=== PATIENT | female | born 2000 | race Caucasian/White ===

== ENCOUNTER 2019-06-29 15:16 | Inpatient (IN) ==
[2019-06-29] MEDS ORDERED: OXYTOCIN 30 UNITS/500 ML BAG IV PRN (15:18)
[2019-06-29] MEDS ORDERED: PENICILLIN G POTASSIUM 3 MU in DEXTROSE 5% 100 ML IV PRN (15:18)
[2019-06-29] MEDS ORDERED: PENICILLIN G POTASSIUM 6 MU in DEXTROSE 5% 250 ML IV STA (15:26)
[2019-06-29 15:38] LABS: Hematocrit (blood only) 36.4 % (37-47); Hemoglobin 12.4 g/dL (12.0-16.0); Mean Corpuscular Hemoglobin 30.6 pg (25-34); Mean Corpuscular Volume 89.9 fL (80-100); Mean Platelet Volume 10.5 fL (7.4-10.4); Platelet Count 203 K/uL (130-400); RDW Coefficient of Variation 14.2 % (11.5-14.5); Red Blood Count 4.05 M/uL (4.2-5.4); White Blood Count 9.86 K/uL (4.8-10.8)
--- NOTE | 2019-06-29 15:39 | History & Physical Report ---
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 Brown is a 19y/o female ; presenting for cervical dilation with contractions when seen in clinic today at 41 4/7 weeks; GBS+ during this ; attended OB appointments; having contractions every 4-5 minutes; has good movement; no fluid loss; no vaginal blood loss Labs: (06/29/19) Blood type: A+ negative antibody screen H.4 Hct: 36.4 WBC: 9.8 Plt: 203 Rubella: immune VDRL/RPR: negative Gonorrhea: negative Chlamydia: negative HIV screen: negative HbSAg: negative GBS: positive normal Glucose tolerance x2 Allergies Allergy/AdvReac Type Severity Reaction Status Date / Time No Known Drug Allergies Allergy Verified 06/29/19 14:31 Past Med/Surg History Medical History Asthma History of varicella vaccination Personal history of asthma Surgical History History of adenoidectomy S/P tonsillectomy S/P wisdom tooth extraction Family History Grandmother (Maternal) Endometriosis great grandmother Dyslipidemia Mother Multiple gestation Other No significant family history Social History Preferred Language: Northern Irish Communication Ability: Effective High Pressure Firer Required: No Beliefs That Will Affect Care: None marital status: Willard Brown Current Living Situation: Spouse Current Living Situation Comment: in town home current occupational status: student Feels Safe at Home: Yes Safety Concerns: Feels Safe At This Time Smoking Status: Never smoker Do You Dip or Chew Tobacco: No ; Second Hand Exposure: No ; Hx Alcohol Use: No Hx Substance Use: No Review of Systems Review of Systems: Constitutional: denies fever; chills; sweats; headache Respiratory: denies shortness of breath, difficulty breathing Cardiac: denies chest pain; palpitations; chest pressure Breast: denies breast pain : denies dysuria Physical Exam Physical Exam: General: alert; oriented; no acute distress Cardiac: RRR; no m/g/r Respiratory: CTAB a/p; no wheezes/rales/rhonchi; no increased work of breathing; symmetrical chest rise; no respiratory distress Lower extrem: no lower extremity edema or swelling; no deep calf pain; Gale's sign negative b/l Genitourinary: Manual OB Exam: + cervical dilation 5 cm, + cervical effacement 80% and + station -2 OB Exam Monitor Tracing: + external FHT monitor used, + external uterine monitor used, + category I and + normal FHT variability Results & Data Laboratory Results 06/29/19 Range/Units 15:30 WBC 9.86 (4.8-10.8) K/uL RBC 4.05 L (4.2-5.4) M/uL Hgb 12.4 (12.0-16.0) g/dL Hct 36.4 L (37-47) % MCV 89.9 (80-100) fL MCH 30.6 (25-34) pg MCHC 34.1 (32-36) g/dL RDW Std Deviation 47.0 H (36.4-46.3) fL RDW Coeff of Alison 14.2 (11.5-14.5) % Plt Count 203 (130-400) K/uL MPV 10.5 H (7.4-10.4) fL Medications Administered Current Inpatient Medications Oxytocin (Pitocin) 30 units in 500 mls @ 333.333 mls/hr IV .Q1H30M PRN; Protocol PRN Reason: Bleeding Control Stop: 07/29/19 15:17 Penicillin G Potassium 3 mu/ (Dextrose) 106 mls @ 100 mls/hr IV Q4H PRN PRN Reason: Give until delivery Stop: 07/09/19 15:17 Penicillin G Potassium 6 mu/ (Dextrose) 262 mls @ 262 mls/hr IV NOW STA Stop: 06/29/19 16:25 Last Admin: 06/29/19 15:50 Dose: 262 mls/hr Documented by: Lactated Ringer's (Lr) 1,000 mls @ 125 mls/hr IV .Q8H PRN; Protocol PRN Reason: L&D Protocol Stop: 07/01/19 15:17 Last Admin: 06/29/19 15:49 Dose: 125 mls/hr Documented by: Code Status & VTE Plan VTE Prophylaxis Plan VTE Prophylaxis will be ordered: No Supervising Physician Co-Signing Physician Notes Resident Physician Supervision Note: I interviewed and examined the patient. Discussed with Dr. Henderson and agree with findings and plan as documented in the note. Any exceptions or clarifications are listed here: Patient is a at 41 4/7 who presents back to labor and delivery in labor. Was seen this am, thought rom, ruled out, and was 3cm. was seen in the office and examined by Dr. Forde and was 5/80/-2, membranes intact. admitted for labor. gbs prophylaxis started. Plan expectant management. epidural on request. Fetus category one. Anticipate nvsd. Documented By: Mary Mccarthy MD, FACOG PG Care Time/CCT Total # of Minutes Spent Total Time Spent with Patient: Total time spent is greater than 50% in coordination of care (as documented) at patient's floor/unit and/or counseling patient: Resident Activity Tracking Resident Involvement: Resident Care Provided Care Provided: OB Delivery
[2019-06-29 15:44] LABS: Mean Corpuscular Hgb Conc 34.1 g/dL (32-36)
[2019-06-29] MEDS: LACTATED RINGER'S 1,000 ML IV PRN ×2 (15:49→19:00)
[2019-06-29] MEDS ORDERED: BUPIVACAINE 0.25% 30 ML VIAL ONE (18:22)
[2019-06-29] MEDS ORDERED: ePHEDrine sulfate 50 MG/ML AMP ONE (18:22)
[2019-06-29] MEDS ORDERED: fentaNYL citrate 100 MCG/2 ML VIAL ONE (18:23)
[2019-06-29] MEDS ORDERED: fentaNYL 2MCG/ML ROPIV 1.25MG/ML 100 ML BAG EPI ONE (18:24)
--- NOTE | 2019-06-29 18:38 | Anesthesiology Consultation ---
Date of Service June 29, 2019 Assessment & Plan Chart Review Chart Review: Acceptable Risk for Surgery, Patient NOT seen in Pre Admission Testing and Acceptable Risk for Labor Epidural Consults Requested none ASA ASA2 Proposed Anesthesia Anesthesia Type: General and Labor Epidural Risk / Benefits Reviewed With: PT / POA / Parent / Guardian, Accepts Plan and Informed Consent Obtained History Height/Weight Height: 5 ft 4 in Weight: 74.843 kg Allergies Allergy/AdvReac Type Severity Reaction Status Date / Time No Known Drug Allergies Allergy Verified 06/29/19 14:31 Medications Home Medications Medication Instructions Recorded Confirmed Last Taken ferrous sulfate 1 tab PO DAILY 06/10/19 06/29/19 06/29/19 prenat.vits,rebeka,xvp-yqog-zwbyh 1 tab PO DAILY 06/27/19 06/29/19 06/29/19 Active Medications Generic Name Dose Route Start Last Admin Trade Name Freq PRN Reason Stop Dose Admin Lactated Ringer's 1,000 mls @ 125 mls/hr 06/29/19 15:18 06/29/19 15:49 Lr IV 07/01/19 15:17 125 mls/hr .Q8H PRN Administration L&D Protocol Protocol NPO Date Last Intake of Fluids: 06/29/19 Time Last Intake of Fluids: 15:00 Date Last Intake of Solids: 06/29/19 Time Last Intake of Solids: 15:00 Past Medical History Medical History Anemia GERD (gastroesophageal reflux disease) Asthma History of varicella vaccination Personal history of asthma Exercise / Class Metabolic Activity II 4-5 Yardwork/Stairs/Walk up hill Past Family History Family History Grandmother (Maternal) Endometriosis great grandmother Dyslipidemia Mother Multiple gestation Other No significant family history Past Surgical History Surgical History History of adenoidectomy S/P tonsillectomy S/P wisdom tooth extraction Past Anesthesia History No Hx of Anesthesia Complications and No Family Hx of Anesthesia Complications History of PONV No Hx of PONV and No Hx of Motion Sickness Social History Smoking Status: Never smoker Do You Dip or Chew Tobacco: No Hx Alcohol Use: No Hx Substance Use: No Physical Exam Vital Signs Last Vital Signs Temp 36.8 C 06/29/19 15:53 Resp 18 06/29/19 15:53 Constitutional + obese ENMT Mouth: no dentition abnormality Thyromental Distance: > or= 3.5 Finger Breadths Mallampati Class: II Neck normal visual inspection and trachea midline; neck extension not limited Respiratory normal respiratory effort Auscultation: lungs clear to auscultation bilaterally Cardiovascular Rate/Rhythm: regular rate and regular rhythm Heart Sounds: no murmur Musculoskeletal Spine: lumbar spine normal to inspection; normal cervical ROM Neurologic moves all extremities Motor/Sensory: no sensory deficit Psychiatric Orientation: alert and oriented x 3 Testing Laboratory Results 06/29/19 15:30
[2019-06-29] MEDS ORDERED: ONDANSETRON INJ 2 MG/ML 2 ML VIAL IV PRN (19:03)
[2019-06-29] MEDS ORDERED: PROMETHAZINE HCL 25 MG in SODIUM CHLORIDE 0.9% 50 ML IV PRN (19:03)
[2019-06-29] MEDS ORDERED: fentaNYL 2MCG/ML ROPIV 1.25MG/ML 100 ML BAG EPI PRN (19:03)
[2019-06-29] MEDS ORDERED: NALBUPHINE HCL INJ 10 MG/ML AMP IV PRN (19:03)
[2019-06-29] MEDS ORDERED: NALOXONE HCL 1 MG in SODIUM CHLORIDE 0.9% 1000ML 1,000 ML IV PRN (19:03)
[2019-06-29] MEDS ORDERED: ePHEDrine sulfate 50 MG/ML AMP IV PRN (19:03)
[2019-06-29] MEDS ORDERED: NALOXONE HCL 0.4 MG/1 ML VIAL/CARP IV PRN (19:03)
[2019-06-29] MEDS ORDERED: DiphenhydrAMINE HCL 50 MG/ML VIAL IV PRN (19:03)
--- NOTE | 2019-06-29 20:03 | Labor Progress Brief Note ---
Date of Service June 29, 2019 Subjective Patient is comfortable after epidural. Notes can feel contractions but not painful. Notes she feels short of breath/cannot take a deep breath since epidural. Assessment & Plan (1) with 41 completed weeks gestation: fetus category one. Reassued that feeling like not taking a deep breath likely secondary to the numbness she is feeling from epidural. Pulse ox 100% . Suspect some of this is feeling of anxiety that the patient is feeling as well. Expectant management. Anticipate . (2) Carrier of group B Streptococcus: continue pitocin Physical Exam Constitutional: WD/WN, vitals as above pulse ox 100%, pulse 90-100 Psychiatric: A+Ox3, euthymic affect Genitourinary: cx--8/100/-1 arom--thin meconium toco--q2-3min efm--130s wtih mod variability, accels to 160s, no decels Results & Data Vital Signs (Past 12 Hours) Vital Signs Temp Resp 06/29/19 15:53 36.8 C 18 06/29/19 15:50 36.8 C 18
[2019-06-29] MEDS ORDERED: METHYLERGONOVINE MALEATE 0.2 MG/ML AMP ONE (23:20)
[2019-06-29] MEDS ORDERED: ACETAMINOPHEN 325 MG TAB PO PRN (23:44)
[2019-06-29] MEDS ORDERED: OXYCODONE/ACETAMINOPHEN 5mg/325mg TAB PO PRN (23:44)
--- NOTE | 2019-06-29 23:45 | Delivery Summary ---
Vaginal Delivery Summary Date of Service June 29, 2019
[2019-06-30] MEDS ORDERED: HYDROCORTISONE ACETATE 25 MG SUPP PR PRN (00:08)
[2019-06-30] MEDS ORDERED: BISACODYL 10 MG SUPP PR PRN (00:08)
[2019-06-30] MEDS ORDERED: SUPERCREAM 0.870% 15 GM JAR EXT PRN (00:08)
[2019-06-30] MEDS ORDERED: DIPHTHERIA/TETANUS/PERTUSSIS 0.5 ML SYR/VIAL IM ONE (00:08)
[2019-06-30] MEDS ORDERED: OXYTOCIN 30 UNITS/500 ML BAG IV PRN (00:08)
[2019-06-30] MEDS ORDERED: METHYLERGONOVINE MALEATE 0.2 MG/ML AMP IM ONE (00:08)
[2019-06-30] MEDS ORDERED: BENZOCAINE 20% AER SPR 82.5 GM CAN EXT PRN (00:08)
--- NOTE | 2019-06-30 04:15 | Delivery Summary ---
DATE OF OPERATION: 06/29/2019 PREOPERATIVE DIAGNOSES: 1. Intrauterine at 41 and 4/7 weeks. 2. Spontaneous labor. POSTOPERATIVE DIAGNOSES: 1. Intrauterine at 41 and 4/7 weeks. 2. Spontaneous labor. 3. Thin meconium. PROCEDURES: 1. Epidural anesthesia. 2. Amniotomy for thin meconium. 3. Normal spontaneous vaginal delivery. 4. Bilateral labial and second-degree laceration with repair. SURGEON: Mary Mccarthy MD ANESTHESIA: Epidural. ESTIMATED BLOOD LOSS: 400 mL. DESCRIPTION OF PROCEDURE: The patient presented to labor and delivery from the office where she was found to be 5 cm, 80%, -2 station. She was admitted and expectantly managed. She progressed to 6 cm and then underwent an epidural anesthetic. After the epidural, she was checked and found to be 8 cm dilated, underwent an amniotomy for thin meconium. She progressed spontaneously to complete-complete and +3 station and pushed for approximately 25 minutes to deliver a viable female infant in JUANA presentation. A loose double nuchal cord was reduced easily. The nose and mouth were bulb suctioned and then the rest of the was then delivered without difficulty. The baby was immediately vigorous. The nose and mouth were bulb suctioned. The baby was dried and placed on the maternal abdomen for drying and attention. The cord was clamped and cut at 1 minute of life. Cord blood and segment were obtained. Placenta was delivered spontaneously intact with a 3-vessel cord. Cervix, sulci, and rectum were examined and found to be intact. A second-degree perineal laceration and bilateral labial lacerations were repaired in the standard fashion with 3-0 and 4-0 Vicryl. Hemostasis was obtained with dilute Pitocin, fundal massage, and IM Methergine. Estimated blood loss was 400 mL. Apgars 8 and 9. Mother and baby doing well at the end of the delivery. I attest to the content of the Intraoperative Record and any orders documented therein. Any exception s are noted below.
--- NOTE | 2019-06-30 06:17 | Obstetrical Progress Note ---
Date of Service <Tristian Henderson MD - Last Filed: 06/30/19 06:44> June 30, 2019 Assessment & Plan <Tristian Henderson MD - Last Filed: 06/30/19 06:44> (1) with 41 completed weeks gestation: 06/29 PPD#1 feels well, voiding well, ambulating some within room will continue routine care after discharge will have 6 week follow-up (2) Carrier of group B Streptococcus: Subjective <Tristian Henderson MD - Last Filed: 06/30/19 06:44> Ms Brown is a 19y/o female ; PPD #1 following spontaneous vaginal delivery at 41+weeks; doing well this morning; no abdominal cramping/pain; voiding well, passing gas but no bowel movements; tolerating meals overnight; and able to ambulate some within room; some persistent spotting with intermittent improvement this morning. Review of Systems Constitutional: denies fever; chills; sweats; headache Respiratory: denies shortness of breath, difficulty breathing Cardiac: denies chest pain; palpitations; chest pressure Breast: denies breast pain : denies dysuria Physical Exam <Tristian Henderson MD - Last Filed: 06/30/19 06:44> General: alert; oriented; no acute distress Cardiac: RRR; no m/g/r Respiratory: CTAB a/p; no wheezes/rales/rhonchi; no increased work of breathing; symmetrical chest rise; no respiratory distress Abdomen: soft; NT/ND; bowel sounds positive Uterus: uterine fundus firm; palpable 2cm below umbilicus Lower extrem: no lower extremity edema or swelling; no deep calf pain; Gale's sign negative b/l Results & Data <Tristian Henderson MD - Last Filed: 06/30/19 06:44> Vital Signs (Past 12 Hours) Vital Signs Temp Pulse Resp BP Pulse Ox 06/30/19 03:00 37.3 C 103 H 16 132/91 98 Laboratory Results 06/30/19 06/29/19 Range/Units 06:08 15:30 WBC 9.86 (4.8-10.8) K/uL RBC 4.05 L (4.2-5.4) M/uL Hgb 10.6 L 12.4 (12.0-16.0) g/dL Hct 31.7 L 36.4 L (37-47) % MCV 89.9 (80-100) fL MCH 30.6 (25-34) pg MCHC 34.1 (32-36) g/dL RDW Std Deviation 47.0 H (36.4-46.3) fL RDW Coeff of Aliosn 14.2 (11.5-14.5) % Plt Count 203 (130-400) K/uL MPV 10.5 H (7.4-10.4) fL Medications Administered Current Inpatient Medications Acetaminophen (Tylenol) 650 mg PO Q6H PRN PRN Reason: Pain/THOMSON/Fever Stop: 07/29/19 23:43 Benzocaine (Dermoplast Pain Relieving [place]) 1 appln EXT PRN PRN PRN Reason: Perineal Discomfort Stop: 07/30/19 00:07 Bisacodyl (Dulcolax) 5 mg PO 1999 [facility] Stop: 06/30/19 20:01 Bisacodyl (Dulcolax) 10 mg [place] DAILY PRN PRN Reason: No BM on 2nd post- day Stop: 07/30/19 00:07 Cocaine HCl (Supercream 0.870%) 1 gm EXT BID PRN PRN Reason: Hemorrhoidal Inflammation Stop: 07/14/19 00:07 Docusate Sodium (Colace) 100 mg PO DAILY@08,21 [facility] Stop: 07/30/19 07:59 Hydrocortisone (Anusol Hc) 25 mg [place] BID PRN PRN Reason: Hemorrhoidal Inflammation Stop: 07/30/19 00:07 Oxytocin (Pitocin) 30 units in 500 mls @ 333.333 mls/hr IV .Q1H30M PRN; Protocol PRN Reason: Bleeding Control Stop: 07/30/19 00:07 Last Admin: 06/29/19 23:14 Dose: 20 units/hr, 333.3 mls/hr Documented by: Ibuprofen (Motrin) 600 mg PO Q4H PRN PRN Reason: Pain/THOMSON/Cramping/Fever Stop: 07/29/19 23:43 Oxycodone/Acetaminophen (Percocet 5mg/325mg) 1 tab PO Q4H PRN PRN Reason: Pain not relieved by... Stop: 07/13/19 23:43 Prenat Multivit/[employer] Representative/Iron/Folic Ac ( Vitamin) 1 tab PO DAILY@08 [place] Stop: 07/30/19 07:59 <Mary Mccarthy MD, FACOG - Last Filed: 06/30/19 07:17> Co-Signing Physician Notes Resident Physician Supervision Note: I interviewed and examined the patient. Discussed with Dr. Henderson and agree with findings and plan as documented in the note. Any exceptions or clarifications are listed here: Doing well. routine care. Documented By: Mary Mccarthy MD, FACOG Resident Activity Tracking <Tristian Henderson MD - Last Filed: 06/30/19 06:44> Resident Involvement: Resident Care Provided Care Provided: OB Delivery
[2019-06-30 06:41] LABS: Hematocrit (blood only) 31.7 % (37-47); Hemoglobin 10.6 g/dL (12.0-16.0)
[2019-06-30] MEDS: PRENATAL VITAMIN 1 TAB PO SCH (08:26)
[2019-06-30] MEDS: IBUPROFEN 600 MG TAB PO PRN ×3 (08:26→23:23)
[2019-06-30] MEDS: DOCUSATE SODIUM 100 MG CAP PO SCH ×2 (08:26→20:09)
--- NOTE | 2019-06-30 08:41 | Anesthesia Procedure Note ---
Date of Service June 30, 2019 Anesthesia Post Epidural Note Vital Signs Vital Signs: Temp Pulse Resp BP Pulse Ox 37.3 C 103 H 16 132/91 98 06/30/19 03:00 06/30/19 03:00 06/30/19 03:00 06/30/19 03:00 06/30/19 03:00 Pain Intensity Abdomen: Pain Intensity: 2 Notes Mental Status: alert / awake / arousable Nausea / Vomiting: adequately controlled Pain: adequately controlled Airway Patency, RR, SpO2: stable & adequate BP & HR: stable & adequate Hydration State: stable & adequate Neuraxial Anesthesia: was administered and sensory block is resolving Anesthetic Complications: no major complications apparent and Pt Satisfied with anesthetic care Epidural: Removed without complications and With tip intact
[2019-06-30] MEDS ORDERED: BISACODYL 5 MG TABEC PO SCH (20:00)
--- NOTE | 2019-07-01 06:10 | Obstetrical Progress Note ---
Date of Service <Tristian Henderson MD - Last Filed: 07/01/19 06:56> July 01, 2019 Assessment & Plan <Tristian Henderson MD - Last Filed: 07/01/19 06:56> (1) with 41 completed weeks gestation: 06/29 PPD#1 feels well, voiding well, ambulating some within room will continue routine care after discharge will have 6 week follow-up (2) Carrier of group B Streptococcus: Subjective <Tristian Henderson MD - Last Filed: 07/01/19 06:56> Ms Brown is a 19 y/o female ; PPD #2 following spontaneous vaginal delivery at 41+ weeks; doing well this morning; having some mild abdominal cramping/pain; voiding well, passing gas but no bowel movements; tolerating meals overnight; and able to ambulate some; some persistent spotting with intermittent improvement this morning. Review of Systems Constitutional: denies fever; chills; sweats; headache Respiratory: denies shortness of breath, difficulty breathing Cardiac: denies chest pain; palpitations; chest pressure Breast: denies breast pain : denies dysuria Physical Exam <Tristian Henderson MD - Last Filed: 07/01/19 06:56> General: alert; oriented; no acute distress Cardiac: RRR; no m/g/r Respiratory: CTAB a/p; no wheezes/rales/rhonchi; no increased work of breathing; symmetrical chest rise; no respiratory distress Abdomen: soft; NT/ND; bowel sounds positive Uterus: uterine fundus firm; palpable 3cm below umbilicus Lower extrem: no lower extremity edema or swelling; no deep calf pain; Gale's sign negative b/l Results & Data <Tristian Henderson MD - Last Filed: 07/01/19 06:56> Vital Signs (Past 12 Hours) Vital Signs Temp Pulse Resp BP Pulse Ox 06/30/19 23:16 37.1 C 91 H 16 113/65 99 06/30/19 19:48 36.8 C 105 H 16 125/83 98 Medications Administered Current Inpatient Medications Acetaminophen (Tylenol) 650 mg PO Q6H PRN PRN Reason: Pain/THOMSON/Fever Stop: 07/29/19 23:43 Benzocaine (Dermoplast Pain Relieving [place]) 1 appln EXT PRN PRN PRN Reason: Perineal Discomfort Stop: 07/30/19 00:07 Bisacodyl (Dulcolax) 10 mg NV DAILY PRN PRN Reason: No BM on 2nd post- day Stop: 07/30/19 00:07 Cocaine HCl (Supercream 0.870%) 1 gm EXT BID PRN PRN Reason: Hemorrhoidal Inflammation Stop: 07/14/19 00:07 Docusate Sodium (Colace) 100 mg PO DAILY@08,21 [facility] Stop: 07/30/19 07:59 Last Admin: 06/30/19 20:09 Dose: 100 mg Documented by: Hydrocortisone (Anusol Hc) 25 mg [place] BID PRN PRN Reason: Hemorrhoidal Inflammation Stop: 07/30/19 00:07 Oxytocin (Pitocin) 30 units in 500 mls @ 333.333 mls/hr IV .Q1H30M PRN; Protocol PRN Reason: Bleeding Control Stop: 07/30/19 00:07 Last Admin: 06/29/19 23:14 Dose: 20 units/hr, 333.3 mls/hr Documented by: Ibuprofen (Motrin) 600 mg PO Q4H PRN PRN Reason: Pain/THOMSON/Cramping/Fever Stop: 07/29/19 23:43 Last Admin: 06/30/19 23:23 Dose: 600 mg Documented by: Oxycodone/Acetaminophen (Percocet 5mg/325mg) 1 tab PO Q4H PRN PRN Reason: Pain not relieved by... Stop: 07/13/19 23:43 Prenat Multivit/[place]/Iron/Folic Ac ( Vitamin) 1 tab PO DAILY@08 [facility] Stop: 07/30/19 07:59 Last Admin: 06/30/19 08:26 Dose: 1 tab Documented by: <Deborah Forde MD - Last Filed: 07/01/19 07:46> Co-Signing Physician Notes I have reviewed the resident's note and examined the patient myself, and agree with the note above. Resident Activity Tracking <Tristian Henderson MD - Last Filed: 07/01/19 06:56> Resident Involvement: Resident Care Provided Care Provided: OB Delivery
[2019-07-01] MEDS: DOCUSATE SODIUM 100 MG CAP PO SCH (08:04)
[2019-07-01] MEDS: PRENATAL VITAMIN 1 TAB PO SCH (08:05)
[2019-07-01] MEDS: IBUPROFEN 600 MG TAB PO PRN (16:32)
== END 2019-07-01 19:00 | disposition home or self-care (01) | DRG 807 ==
LOC: 4S1 15:16 → 4S2 06-30 02:30
DX: O99.02 Anemia complicating childbirth; O99.824 Streptococcus B carrier state complicating childbirth; O77.0 Labor and delivery complicated by meconium in amniotic fluid; O70.1 Second degree perineal laceration during delivery; O48.0 Post-term pregnancy; Z3A.41 41 weeks gestation of pregnancy; Z37.0 Single live birth; O69.81X0 Labor and delivery complicated by cord around neck, without compression, not applicable or unspecified

== ENCOUNTER 2022-02-07 02:58 | Inpatient (IN) ==
[2022-02-07] MEDS ORDERED: ONDANSETRON INJ 2 MG/ML 2 ML VIAL IV STA (03:20)
[2022-02-07] MEDS ORDERED: SODIUM CHLORIDE 0.9% 1000ML 1,000 ML IV SCH (03:30)
[2022-02-07] MEDS: MoRPHine SULFATE 4 MG/ML 1 ML CARP\\VIAL IV PRN ×5 (03:59→20:16)
[2022-02-07 04:09] LABS: Basophils # (auto) 0.03 K/uL (0-0.2); Basophils % (auto) 0.3 %; Eosinophils # (auto) 0.07 K/uL (0-0.5); Eosinophils % (auto) 0.6 %; Hematocrit (blood only) 40.1 % (37-47); Hemoglobin 13.2 g/dL (12.0-16.0); Immature Granulocytes # (auto) 0.03 K/uL (0.00-0.02); Immature Granulocytes % (auto) 0.3 %; Lymphocytes # (auto) 2.45 K/uL (1.2-3.4); Lymphocytes % (auto) 21.8 %; Mean Corpuscular Hemoglobin 27.9 pg (25-34); Mean Corpuscular Hgb Conc 32.9 g/dL (32-36); Mean Corpuscular Volume 84.8 fL (80-100); Monocytes # (auto) 0.42 K/uL (0.11-0.59); Monocytes % (auto) 3.7 %; Neutrophils # (auto) 8.25 K/uL (1.4-6.5); Neutrophils % (auto) 73.3 %; Platelet Count 327 K/uL (130-400); RDW Coefficient of Variation 12.7 % (11.5-14.5); RDW Standard Deviation 39.8 fL (36.4-46.3); Red Blood Count 4.73 M/uL (4.2-5.4); White Blood Count 11.25 K/uL (4.8-10.8)
[2022-02-07 04:11] LABS: Appearance Urine Cloudy (Clear); Bacteria Urine Automated Negative (Negative); Bilirubin Urine Negative (Negative); Blood Urine Negative (Negative); Color Urine Yellow; Epithelial Cell Urine Auto >30 /lpf (0-5); Glucose Urine UA Negative (Negative); Ketones Urine Trace (Negative); Leukocyte Esterase Urine Negative (Negative); Nitrite Urine Negative (Negative); Protein Urine Negative (Negative); RBC Urine Automated 0-4 /hpf (0-4); Specific Gravity Urine 1.031 (1.000-1.030); Urobilinogen Urine Negative (Negative)
[2022-02-07 04:25] LABS: Cast Urine Automated 0 /lpf (0-5); Mucus Urine Present (None Prsent)
[2022-02-07 04:36] LABS: Albumin Globulin Ratio 1.3 (0.9-2); Albumin Level 4.3 gm/dl (3.4-5.0); BUN Creatinine Ratio 23.4 (10-20); Bilirubin,Total 0.3 mg/dl (0.2-1.0); Calcium 9.3 mg/dl (8.5-10.1); Creatinine Clr Calc Pharmacy 138.4 ml/min; Est GFR (African American) 146.8 ml/min; Est GFR (Non-African American) 126.7 ml/min; Globulin 3.2 gm/dl (2.5-4.0); Potassium 3.7 mmol/L (3.5-5.1); Total Protein 7.5 gm/dl (6.0-8.3)
[2022-02-07] MEDS ORDERED: OPTIRAY 320 100ml IV ONE (05:45)
--- NOTE | 2022-02-07 07:30 | CT Scan Report ---
ABDOMEN AND PELVIS CT WITH IV AND ORAL CONTRAST CT DOSE: 389.91 mGy.cm HISTORY: Right lower quadrant abdominal pain. TECHNIQUE: Multiaxial CT images of the abdomen and pelvis were performed following the use of intrave nous and oral contrast. A dose lowering technique was utilized adhering to the principles of ALARA. COMPARISON STUDY: Abdomen and pelvis CT 10/29/2021. FINDINGS: The lung bases are clear. No pneumoperitoneum. No pneumatosis. No fractures within the visu alized osseous structures. The liver, gallbladder, spleen, adrenal glands, pancreas, and kidneys are unremarkable. No hydronephrosis. The main portal vein is patent. No retroperitoneal lymphadenopathy. Normal caliber abdominal aorta. The bladder is unremarkable. An intrauterine device appears in good p osition. A 1.4 cm thick-walled cyst within the left ovary. This favors a corpus luteum. Normal append ix. Distended and stool-filled distal ileum to the level of the cecal valve with mild adjacent fat st randing and trace fluid. The distended terminal ileum measures 4.1 cm in diameter. 4, this is consist ent with a small bowel obstruction with the transition point located at the ileocecal valve. Stomach is also mildly distended. IMPRESSION: 1. Small bowel obstruction with the transition point at the ileocecal valve. GI consultation recommen ded to evaluate for possible underlying stricture or lesion. 2. Normal appendix. 3. Intrauterine device is in good position. ACT 112: Negative or not required by law. Electronically signed by: Jas Crowder M.D. 02/07/2022 7:27 AM
--- NOTE | 2022-02-07 09:23 | Gastrointestinal Consultation ---
Date of Consultation February 07, 2022 Assessment & Plan (1) SBO (small bowel obstruction): -Agree with NG tube placement -NPO -Surgical consult (2) Abnormal CT scan, colon: -If patient responds well to conservative measures with SBO, would plan for colonoscopy on Thursday02/10/22. Supervising Physician Co-Signing Physician Notes I personally evaluated the patient and agree with the findings as documented by Radha Rodriguez, PAC Exam: Constitutional: WD/WN, vitals as above General: EOM intact bilaterally Neck: normal visual inspection Respiratory: normal respiratory effort, lungs clear to auscultation Cardiovascular: RRR, no murmur, no edema Gastrointestinal: nondistended, soft, nontender, no hepatosplenomegaly, decreased bowel sounds Musculoskeletal: no cyanosis, head normal to inspection Skin: no rashes, warm and dry Neurologic: moves all extremities Psychiatric: A and O x3, euthymic affect NG tube in place, continue to low intermittent suction NPO daily KUBs, serial abdominal exams agree that if the bowel obstruction improves/resolves can do a colonoscopy early next week, Dr. Harkins is on this weekend and will follow History of Present Illness Reason for Consultation: Abnormal CT imaging IC valve History of Present Illness Patient is a 21 yo female who presents to the the ED due to acute abdominal pain. A CT scan has indicated a small bowel obstruction with transition point at the IC valve. GI consultation was recommended by radiology to evaluate for possible underlying stricture or lesion. Patient was seen in the office in November due to abnormal imaging of the colon suggestive of possible colitis. A colonoscopy was advised, however patient had opted to schedule this for February. Patient had reported intolerance to dairy that has been ongoing. She had struggled with abdominal pain and constipation for quite some time. She had noted to me previously that she moves her bowels several times daily but does not feel she completely evacuates. She notes no family history of IBD. She had been resistant to any medication for her bowels historically. She has made multiple trips to EDs at various locations due to similar issues. Currently, vitals are stable. WBC 11,250. CBC unremarkable otherwise. Na 135, but metabolic panel is otherwise unremarkable. Allergies Allergy/AdvReac Type Severity Reaction Status Date / Time No Known Drug Allergies Allergy Unknown Verified 02/07/22 06:36 Home Medications Medication Instructions Recorded Confirmed Type cholecalciferol (vitamin D3) 50 2,000 unit PO DAILY #30 cap 12/26/21 02/07/22 Rx mcg (2,000 unit) capsule Patient History Medical History (Updated 02/07/22 @ 09:29 by Radha Rodriguez PA-C) Asthma Depression Granulation tissue History of varicella vaccination Vitamin D deficiency Surgical History History of adenoidectomy S/P tonsillectomy S/P wisdom tooth extraction Family History Grandmother (Maternal) Endometriosis great grandmother Dyslipidemia Mother Multiple gestation Other No significant family history Denies family history of Ovarian cancer Prostate cancer Myocardial infarction Breast cancer Colorectal cancer Social History Smoking Status: Never smoker Second Hand Exposure: No; Do You Dip or Chew Tobacco: No; Tobacco Cessation Education Requested by Patient: No Hx Alcohol Use: No Hx Substance Use: No Preferred Language: Kyrgyz Communication Ability: Effective Visual Impairment: No Limitations Hearing Ability: Normal Extractor Loader And Unloader Required: No Beliefs That Will Affect Care: None marital status: Current Living Situation: Spouse Current Living Situation Comment: in town home current occupational status: student How many Children do You have: 1 Other Information That Helps Us Care for You: No Feels Safe at Home: Yes Safety Concerns: Feels Safe At This Time Childhood Exposure to Second-Hand Smoke: No caffeine: Yes (coffee) Dental Care, Regularly: Yes Physical Activity Frequency: 3-4 Times per Week Seatbelt Use: always Sunscreen Use: Yes Assistive Devices: None Review of Systems Constitutional: no fever and no chills Respiratory: no cough and no dyspnea Cardiovascular: no chest pain Gastrointestinal: + abdominal pain and + constipation; no blood in stools Integumentary: no problem reported Psychiatric: no problem reported Physical Exam Constitutional: well developed Respiratory: normal respiratory effort Cardiovascular: Rate/Rhythm: regular rate Gastrointestinal (Abdomen): Inspection/Auscultation: + abdomen distended Percussion/Palpation: + abdomen tender Psychiatric: Orientation: alert and oriented x 3 Results & Data ([facility]) Vital Signs (Past 12 Hours) Vital Signs Temp Pulse Pulse Resp BP BP Pulse Ox 02/07/22 08:36 79 18 127/70 99 02/07/22 04:19 89 18 99 02/07/22 03:03 36.6 C 100 H 16 118/79 100 PG Care Time/CCT Total # of Minutes Spent Total Time Spent with Patient: Total time spent is greater than 50% in coordination of care (as documented) at patient's floor/unit and/or counseling patient: Coding Level of Care Code 66934 Inpt Consult Level 4 Diagnoses SBO (small bowel obstruction) K56.[address] scan, colon R93.3
--- NOTE | 2022-02-07 10:18 | History & Physical Report ---
Date of Service February 07, 2022 Assessment & Plan (1) SBO (small bowel obstruction): Plan: - SBO in a kotlik abdomen with transition point at the ileocecal valve - Mild leukocytosis with left shift noted, no fever, no need for abx at present, check procal - NPO - NGT to be inserted for gastric decompression - IVF w/ LR at 125 ml/hr - Pain control ordered with Morphine (dosed according to pain scale) and Tylenol IV for mild pain - Zofran PRN n/v - Consult GI, Dr. Harkins, appreciate recommendations - F/U KUB and repeat CBC and BMP in AM (2) Depression: Plan: - Appropriate mood and affect, on no medications (3) Vitamin D deficiency: Plan: - Hold Vitamin D supplementation while NPO Plan: As above. Plan d/w Dr. Peña who will also see and evaluate this patient. Additional orders as warranted. History of Present Illness Chief Complaint: Abdominal pain Primary Care Provider: Lars Joy DO Vero Brown is a 21 yo WF with a pmhx of depression, asthma, and vitamin D deficiency who takes no medications who presented to the ER c/o abdominal pain that began around 6pm last evening. Pt reports epigastric dull pain that started around 6pm. She went to bed but awoke from sleep due to acutely worsening pain that she describes as intermittent sharp pains across her upper abdomen and on the right side. She describes it as "worse than labor pains." She subsequently presented to the ER. She reported nausea in route but no vomiting. She notes a similar episode about 2 months ago after eating cashews and last evening was eating almonds prior to onset of pain. She presented to the ED then but was not hospitalized. She was referred to GI as an outpatient and does have an upcoming appointment at the end of February to schedule a colonoscopy. She also admits to having chronic constipation since having her daughter 2 years ago. She has a family history in her maternal grandmother of IBS but denies IBD history. She has had BRB in her stool on occasion but isn't sure if this is related to hemorrhoids which she believes she has. She denies melena. Work up in the ER demonstrated a mild leukocytosis with left shift and radiologic evidence of an SBO with a transition point at the ileocecal valve. Case was d/w Dr. Harkins who advised admission and possible inpatient colonoscopy. NGT has not yet been place d, pt is requesting that her be present for support prior to it being placed. Morphine was provided as well as Zofran in the ED with symptomatic improvement. Presently, she reports pain and nausea seems to be returning. Denies fever, chills, diarrhea, chest pain, SOB, or symptoms. Allergies Allergy/AdvReac Type Severity Reaction Status Date / Time No Known Drug Allergies Allergy Unknown Verified 02/07/22 06:36 Home Medications Medication Instructions Recorded Confirmed Type cholecalciferol (vitamin D3) 50 2,000 unit PO DAILY #30 cap 12/26/21 02/07/22 Rx mcg (2,000 unit) capsule Past Med/Surg History Medical History Asthma Depression Granulation tissue History of varicella vaccination Vitamin D deficiency Surgical History History of adenoidectomy S/P tonsillectomy S/P wisdom tooth extraction Family History Grandmother (Maternal) Endometriosis great grandmother Dyslipidemia Mother Multiple gestation Other No significant family history Denies family history of Ovarian cancer Prostate cancer Myocardial infarction Breast cancer Colorectal cancer Social History Smoking Status: Never smoker Second Hand Exposure: No; Do You Dip or Chew Tobacco: No; Tobacco Cessation Education Requested by Patient: No Hx Alcohol Use: No Hx Substance Use: No Preferred Language: Belarusian Communication Ability: Effective Visual Impairment: No Limitations Hearing Ability: Normal Steam Box Operator Required: No Beliefs That Will Affect Care: None marital status: Current Living Situation: Spouse Current Living Situation Comment: in town home current occupational status: student How many Children do You have: 1 Other Information That Helps Us Care for You: No Feels Safe at Home: Yes Safety Concerns: Feels Safe At This Time Childhood Exposure to Second-Hand Smoke: No caffeine: Yes (coffee) Dental Care, Regularly: Yes Physical Activity Frequency: 3-4 Times per Week Seatbelt Use: always Sunscreen Use: Yes Assistive Devices: None Review of Systems Review of Systems: All systems reviewed and are unremarkable except as noted in HPI and below. Denies fever, chills, fatigue, headache, nasal congestion, sore throat, cough, chest pain, shortness of breath, palpitations, orthopnea, PND, v/d, constipati on, dysuria, hematuria, frequency, back pain, joint pain or swelling, easy bruising or bleeding, skin lesions or rashes. Physical Exam Physical Exam: GENERAL: 21 yo well-developed, well-nourished WF. NAD. EYES: EOMI. PERRLA. Anicteric. HENT: Moist mucous membranes. No scleral icterus. No cervical lymphadenopathy. LUNGS: Clear to auscultation bilaterally. No accessory muscle use. No W/R/R. CARDIOVASCULAR: Regular rate and rhythm. No M/G/R. No JVD. ABDOMEN: Soft, nondistended, mildly tender to palpation in RLQ, BS present in all 4 quad--hypoactive in RLQ EXTREMITIES: No edema. Non-tender. Peripheral pulses +2/4. NEUROLOGIC: A&O x3. No focal neurological deficits. CN II-XII grossly intact. PSYCHIATRIC: Cooperative. Appropriate mood and affect. SKIN: Warm, dry, intact. No rashes or lesions. Results & Data Results & Data ([facility]) Vital Signs (Past 12 Hours) Vital Signs Temp Pulse Pulse Resp BP BP Pulse Ox 02/07/22 08:36 79 18 127/70 99 02/07/22 04:19 89 18 99 02/07/22 03:03 36.6 C 100 H 16 118/79 100 Laboratory Results 02/07/22 03:50 02/07/22 03:50 Diagnostic Findings Abdomen/Pelvis CT 02/07/22 03:[address] WITH IV AND ORAL CONTRAST CT DOSE: 389.91 mGy.cm HISTORY: Right lower quadrant abdominal pain. TECHNIQUE: Multiaxial CT images of the abdomen and pelvis were performed following the use of intravenous and oral contrast. A dose lowering technique was utilized adhering to the principles of ALARA. COMPARISON STUDY: Abdomen and pelvis CT 10/29/2021. FINDINGS: The lung bases are clear. No pneumoperitoneum. No pneumatosis. No fractures within the visualized osseous structures. The liver, gallbladder, spleen, adrenal glands, pancreas, and kidneys are unremarkable. No hydronephrosis. The main portal vein is patent. No retroperitoneal lymphadenopathy. Normal caliber abdominal aorta. The bladder is unremarkable. An intrauterine device appears in good position. A 1.4 cm thick-walled cyst within the left ovary. This favors a corpus luteum. Normal appendix. Distended and stool-filled distal ileum to the level of the cecal valve with mild adjacent fat stranding and trace fluid. The distended terminal ileum measures 4.1 cm in diameter. 4, this is consistent with a small bowel obstruction with the transition point located at the ileocecal valve. Stomach is also mildly distended. IMPRESSION: 1. Small bowel obstruction with the transition point at the ileocecal valve. GI consultation recommended to evaluate for possible underlying stricture or lesion. 2. Normal appendix. 3. Intrauterine device is in good position. ACT 112: Negative or not required by law. Electronically signed by: Jas Crowder M.D. 02/07/2022 7:27 AM Code Status & VTE Plan VTE Prophylaxis Plan VTE Prophylaxis will be ordered: No Supervising Physician Co-Signing Physician Notes I personally saw and examined the patient. I verified all cottrell points and agree with Marcia Jefferson PA-C with the following exceptions and/or additions: 21 year old female admission for abdominal pain, nausea and vomiting. O/E HS1+2, RRR, no murmurs, Chest CTAB, Abdo left > right tenderness without guarding or rebound. A/P SBO - NPO, IV fluids, NG tube draining well, consult gastroenterology for possible need for colonoscopy once able to tolerate PO intake PG Care Time/CCT Total # of Minutes Spent Total Time Spent with Patient: Total time spent is greater than 50% in coordination of care (as documented) at patient's floor/unit and/or counseling patient: Coding Level of Care Code 85721 Initial Inpt Care Lvl 2 Diagnoses SBO (small bowel obstruction) K56.609 Depression F32.A Vitamin D deficiency E55.9
[2022-02-07] MEDS ORDERED: LORazepam 2 MG/1 ML VIAL IV STA (10:27)
[2022-02-07] MEDS ORDERED: MoRPHine SULFATE 2 MG/ML CARP IV PRN (11:54)
[2022-02-07] MEDS ORDERED: ACETAMINOPHEN 1000 MG/100 ML IV IV PRN (12:12)
[2022-02-07] MEDS: LACTATED RINGER'S 1,000 ML IV SCH ×2 (12:48→21:15)
[2022-02-07] MEDS: PANTOprazole 40 MG in SYRINGE 0 ML IV SCH (12:52)
[2022-02-07] MEDS ORDERED: CHLORASEPTIC 1.4% SOLN 180 ML BTL MT PRN (14:10)
--- NOTE | 2022-02-07 14:48 | XRay Report ---
XR chest 1V portable HISTORY: NGT placement COMPARISON: None. FINDINGS: No pneumothorax. No pleural effusions. The heart is normal in size. Nasogastric tube termin ates in the body the stomach. The lungs are clear. IMPRESSION: Nasogastric tube terminates in the stomach. ACT 112: Negative or not required by law. Electronically signed by: Jas Crowder M.D. 02/07/2022 2:46 PM
[2022-02-07] MEDS: ONDANSETRON INJ 2 MG/ML 2 ML VIAL IV PRN ×2 (14:58→21:02)
[2022-02-07] MEDS ORDERED: SUCRALFATE 1 GM/10 ML UDC PO SCH (17:00)
[2022-02-07] MEDS ORDERED: LAVAGE SOLUTION 4000ML PO SCH (18:00)
[2022-02-07] MEDS ORDERED: LIDOCAINE VISCOUS 2% 15 ML UDC MT ONE (20:32)
--- NOTE | 2022-02-07 21:00 | XRay Report ---
SINGLE VIEW CHEST CLINICAL HISTORY: Enteric tube placement. Vomiting. FINDINGS: 2 AP, portable, upright chest radiographs are compared to study dated 02/07/2022. An enteric tube is unchanged in position. The tip projects below the diaphragm over the proximal stomach. The c ardiomediastinal silhouette is unremarkable. The lungs and pleural spaces are clear. No pneumothorax is seen. The bony thorax is grossly intact. IMPRESSION: 1. The lungs are clear. 2. An enteric tube is in place as above. ACT 112: Negative or not required by law. Electronically signed by: Jake Marmolejo M.D. 02/07/2022 8:59 PM
--- NOTE | 2022-02-07 22:52 | XRay Report ---
KUB CLINICAL HISTORY: Small bowel obstruction. FINDINGS: 2 AP, portable, supine abdominal radiographs are correlated with abdominal CT dated 02/08/20 22. An enteric tube projects below the diaphragm over the stomach. There is evidence of persistent sm all bowel obstruction. The small bowel loops are distended with residual enteric contrast and measure up to 4.2 cm. No evidence of intraperitoneal free air is seen on these supine images. Fecal retentio n is noted in the right colon. The bladder is filled with excreted IV contrast. An intrauterine devic e is seen in the pelvis. The bony structures appear intact. IMPRESSION: Persistent small bowel obstruction. Electronically signed by: Jake Marmolejo M.D. 02/07/2022 10:51 PM
--- NOTE | 2022-02-08 02:51 | Emergency Department Note ---
History of Present Illness General Chief complaint: Abdominal Pain Stated complaint: SEVERE ABD PAIN,WEAKNESS Time Seen by Provider: 02/07/22 03:12 History of Present Illness Maximum Pain Intensity: 8 This is a 21-year-old female presenting to the emergency department for evaluation of right lower quadrant abdominal pain worsening over the course of today. The patient does not have a history of abdominal surgery in the past. She does report having chronic constipation and possible irritable bowel symptoms. She previously followed with GI locally where colonoscopy was recommended, but she did not wish to have this during the and was waiting until summer. The patient has not had fevers or chills. No chest pain, chest tightness, or shortness of breath. She is nauseated and feels like she has been using the bathroom is normal. She rates her overall discomfort an 8/ 10. Home Medications Medication Instructions Recorded Confirmed Type cholecalciferol (vitamin D3) 50 2,000 unit PO DAILY #30 cap 12/26/21 02/07/22 Rx mcg (2,000 unit) capsule Allergies Allergy/AdvReac Type Severity Reaction Status Date / Time No Known Drug Allergies Allergy Unknown Verified 02/07/22 06:36 Past Med/Surg History Medical History Asthma Depression Granulation tissue History of varicella vaccination Vitamin D deficiency Surgical History History of adenoidectomy S/P tonsillectomy S/P wisdom tooth extraction Family History Grandmother (Maternal) Endometriosis great grandmother Dyslipidemia Mother Multiple gestation Other No significant family history Denies family history of Ovarian cancer Prostate cancer Myocardial infarction Breast cancer Colorectal cancer Social History Smoking Status: Never smoker Second Hand Exposure: No; Do You Dip or Chew Tobacco: No; Tobacco Cessation Education Requested by Patient: No Hx Alcohol Use: No Hx Substance Use: No Preferred Language: Bengali Communication Ability: Effective Visual Impairment: No Limitations Hearing Ability: Normal Collection Systems Consultant Required: No Beliefs That Will Affect Care: None marital status: Current Living Situation: Spouse Current Living Situation Comment: in town home current occupational status: student How many Children do You have: 1 Other Information That Helps Us Care for You: No Feels Safe at Home: Yes Safety Concerns: Feels Safe At This Time Childhood Exposure to Second-Hand Smoke: No caffeine: Yes (coffee) Dental Care, Regularly: Yes Physical Activity Frequency: 3-4 Times per Week Seatbelt Use: always Sunscreen Use: Yes Assistive Devices: None Review of Systems A total of 10 systems reviewed and were otherwise negative Physical Exam Vital Signs Vital Signs - 24 hr 02/07/22 03:03 02/07/22 04:19 02/07/22 06:00 Temperature 36.6 C Temperature Source Temporal Artery Scan Pulse Rate 100 H Pulse Rate [Finger] 89 Pulse Rhythm [Finger] Regular Pulse Strength [Finger] Respiratory Rate 16 18 Respiratory Effort / Characteristics Non-Labored Non-Labored Respiratory Depth Normal Normal Respiratory Pattern Blood Pressure 118/79 Blood Pressure [Right Arm] Blood Pressure Mean 92 Blood Pressure Mean [Right Arm] Blood Pressure Position Sitting Blood Pressure Position [Right Arm] Pulse Oximetry 100 99 Oxygen Delivery Method Room Air Room Air Sepsis Recent Fever Within 48 Hours No Sepsis New/Unexplained Change in Mental Status No Sepsis Action Taken by Nursing No Action Required 02/07/22 08:36 Temperature Temperature Source Pulse Rate Pulse Rate [Finger] 79 Pulse Rhythm [Finger] Regular Pulse Strength [Finger] Normal Respiratory Rate 18 Respiratory Effort / Characteristics Non-Labored Spontaneous Respiratory Depth Normal Respiratory Pattern Regular Blood Pressure Blood Pressure [Right Arm] 127/70 Blood Pressure Mean Blood Pressure Mean [Right Arm] 89 Blood Pressure Position Blood Pressure Position [Right Arm] Sitting Pulse Oximetry 99 Oxygen Delivery Method Room Air Sepsis Recent Fever Within 48 Hours Sepsis New/Unexplained Change in Mental Status Sepsis Action Taken by Nursing VITALS: Vitals are noted on the nurse's note and reviewed by myself. Vital signs stable. GENERAL: Well-developed, well-nourished, white female, who is in no acute distress and resting comfortably. Patient is cooperative with the examination. HEAD: Normocephalic atraumatic. NECK: Supple without nuchal rigidity. No lymphadenopathy. No thyromegaly. Cervical spine is nontender. HEART: Regular rate and rhythm without murmurs gallops or rubs. LUNGS: Clear to auscultation bilaterally without wheezes, rales or rhonchi. No retractions or accessory muscle use. ABDOMEN: Positive normal bowel sounds x 4. Soft, nontender, without masses or organomegaly. No guarding or rebound tenderness. MUSCULOSKELETAL: No muscle atrophy, erythema, or edema noted. Full range of motion in all extremities. Course Administered Medications Lactated Ringer's (Lr) 1,000 mls @ 125 mls/hr IV .Q8H [facility] Stop: 03/09/22 11:53 Last Admin: 02/07/22 21:15 Dose: 125 mls/hr Documented by: [id number] Infusion: 02/07/22 20:48 Dose: 125 mls/hr Documented by: [id number] Admin: 02/07/22 12:48 Dose: 125 mls/hr Documented by: [id number] Pantoprazole Sodium 40 mg/ (Syringe) 10 mls @ 5 mls/min IV DAILY@1100 [facility] Stop: 03/09/22 11:53 Last Admin: 02/07/22 12:52 Dose: 5 mls/min Documented by: [id number] Morphine Sulfate (Morphine Sulfate 4 Mg/Ml 1 Ml Carp\Vial) 4 mg IV Q3H PRN PRN Reason: Pain scale 7-10 Stop: 02/21/22 11:53 Last Admin: 02/07/22 20:16 Dose: 4 mg Documented by: [id number] Admin: 02/07/22 12:22 Dose: 4 mg Documented by: [id number] Ondansetron HCl (Ondansetron Inj 2 Mg/Ml 2 Ml Vial) 4 mg IV Q6H PRN PRN Reason: nausea/vomiting Stop: 03/09/22 10:14 Last Admin: 02/07/22 21:02 Dose: 4 mg Documented by: [id number] Admin: 02/07/22 14:58 Dose: 4 mg Documented by: [id number] Sucralfate (Sucralfate 1 Gm/10 Ml Udc) 1 gm PO QID [facility] Stop: 03/09/22 16:59 Last Admin: 02/07/22 17:26 Dose: 1 gm Documented by: [id number] Discontinued Medications Sodium Chloride (Nss 1000ml) 1,000 mls @ 999 mls/hr IV .Q1H1M [facility] Stop: 02/07/22 04:30 Last Infusion: 02/07/22 05:01 Dose: 0 mls/hr Documented by: [id number] Admin: 02/07/22 03:59 Dose: 999 mls/hr Documented by: [id number] Ioversol (Optiray 320 100ml) 100 ml IV ONCE ONE Stop: 02/07/22 05:46 Last Admin: 02/07/22 05:45 Dose: 93 ml Documented by: [id number] Lidocaine HCl (Lidocaine Viscous 2% 15 Ml Udc) 10 ml MT NOW ONE Stop: 02/07/22 20:33 Last Admin: 02/07/22 21:25 Dose: 10 ml Documented by: [id number] Lorazepam (Lorazepam 2 Mg/1 Ml Vial) 0.25 mg IV NOW STA Stop: 02/07/22 10:28 Last Admin: 02/07/22 10:35 Dose: 0.25 mg Documented by: [id number] Morphine Sulfate (Morphine Sulfate 4 Mg/Ml 1 Ml Carp\Vial) 4 mg IV Q30M PRN PRN Reason: Pain Stop: 02/21/22 03:19 Last Admin: 02/07/22 09:46 Dose: 4 mg Documented by: [id number] Admin: 02/07/22 05:54 Dose: 4 mg Documented by: [id number] Admin: 02/07/22 03:59 Dose: 4 mg Documented by: [id number] Ondansetron HCl (Ondansetron Inj 2 Mg/Ml 2 Ml Vial) 4 mg IV NOW STA Stop: 02/07/22 03:21 Last Admin: 02/07/22 03:59 Dose: 4 mg Documented by: [id number] Medical Decision Making Differential Diagnosis Differential diagnosis: Etiologies such as biliary colic, cholecystitis, hepatitis, pancreatitis, cardiac disease, pancreatitis, gastritis, peptic ulcer disease, appendicitis, cystitis, diverticulitis, mesenteric ischemia, inflammatory bowel disease, ileus, bowel obstruction, testicular/adnexal torsion, aortic pathology, shingles, as well as others were considered Laboratory Data Result diagrams: 02/07/22 03:50 02/07/22 03:50 Lab Results 02/07/22 02/07/22 02/07/22 Range/Units 03:15 03:15 03:50 WBC 11.25 H (4.8-10.8) K/uL RBC 4.73 (4.2-5.4) M/uL Hgb 13.2 (12.0-16.0) g/dL Hct 40.1 (37-47) % MCV 84.8 (80-100) fL MCH 27.9 (25-34) pg MCHC 32.9 (32-36) g/dL RDW Std Deviation 39.8 (36.4-46.3) fL RDW Coeff of Alison 12.7 (11.5-14.5) % Plt Count 327 (130-400) K/uL MPV 9.0 (7.4-10.4) fL Immature Gran % (Auto) 0.3 % Neut % (Auto) 73.3 % Lymph % (Auto) 21.8 % [place] % (Auto) 3.7 % Eos % (Auto) 0.6 % Baso % (Auto) 0.3 % Neut # (Auto) 8.25 H (1.4-6.5) K/uL Lymph # (Auto) 2.45 (1.2-3.4) K/uL [place] # (Auto) 0.42 (0.11-0.59) K/uL Eos # (Auto) 0.07 (0-0.5) K/uL Baso # (Auto) 0.03 (0-0.2) K/uL Immature Gran # (Auto) 0.03 H (0.00-0.02) K/uL Sodium (136-145) mmol/L Potassium (3.5-5.1) mmol/L Chloride (98-107) mmol/L Carbon Dioxide (21-32) mmol/L Anion Gap (3-11) BUN (6-23) mg/dl Creatinine (0.6-1.2) mg/dl Est Cr Clr Drug Dosing ml/min Est GFR ( Amer) ml/min Est GFR (Non-Af Amer) ml/min BUN/Creatinine Ratio (10-20) Glucose (70-99(Fasting)) mg/dl Calcium (8.5-10.1) mg/dl Total Bilirubin (0.2-1.0) mg/dl AST (13-39) U/L ALT (7-52) U/L Alkaline Phosphatase (34-104) U/L Total Protein (6.0-8.3) gm/dl Albumin (3.4-5.0) gm/dl Globulin (2.5-4.0) gm/dl Albumin/Globulin Ratio (0.9-2) Lipase (11-82) U/L Urine Color Yellow Urine Appearance Cloudy A (Clear) Urine pH 5.0 (4.5-7.5) Ur Specific [place] 1.031 H (1.000-1.030) Urine Protein Negative (Negative) Urine Glucose (UA) Negative (Negative) Urine Ketones Trace H (Negative) Urine Blood Negative (Negative) Urine Nitrite Negative (Negative) Urine Bilirubin Negative (Negative) Urine Urobilinogen Negative (Negative) Ur Leukocyte Esterase Negative (Negative) Urine WBC (Auto) 1-5 (0-5) /hpf Urine RBC (Auto) 0-4 (0-4) /hpf U Hyaline Cast (Auto) 0 (0-5) /lpf U Epithel Cells (Auto) >30 H (0-5) /lpf Urine Bacteria (Auto) Negative (Negative) Urine Mucus Present A (None Prsent) POC Ur Test NEG (NEG) SARS-CoV-2, RNA, NAAT (NEGATIVE) 02/07/22 02/07/22 Range/Units 03:50 08:31 WBC (4.8-10.8) K/uL RBC (4.2-5.4) M/uL Hgb (12.0-16.0) g/dL Hct (37-47) % MCV (80-100) fL MCH (25-34) pg MCHC (32-36) g/dL RDW Std Deviation (36.4-46.3) fL RDW Coeff of Alison (11.5-14.5) % Plt Count (130-400) K/uL MPV (7.4-10.4) fL Immature Gran % (Auto) % Neut % (Auto) % Lymph % (Auto) % [place] % (Auto) % Eos % (Auto) % Baso % (Auto) % Neut # (Auto) (1.4-6.5) K/uL Lymph # (Auto) (1.2-3.4) K/uL [place] # (Auto) (0.11-0.59) K/uL Eos # (Auto) (0-0.5) K/uL Baso # (Auto) (0-0.2) K/uL Immature Gran # (Auto) (0.00-0.02) K/uL Sodium 135 L (136-145) mmol/L Potassium 3.7 (3.5-5.1) mmol/L Chloride 104 (98-107) mmol/L Carbon Dioxide 25 (21-32) mmol/L Anion Gap 6 (3-11) BUN 15 (6-23) mg/dl Creatinine 0.64 (0.6-1.2) mg/dl Est Cr Clr Drug Dosing 138.4 ml/min Est GFR ( Amer) 146.8 ml/min Est GFR (Non-Af Amer) 126.7 ml/min BUN/Creatinine Ratio 23.4 H (10-20) Glucose 95 (70-99(Fasting)) mg/dl Calcium 9.3 (8.5-10.1) mg/dl Total Bilirubin 0.3 (0.2-1.0) mg/dl AST 13 (13-39) U/L ALT 10 (7-52) U/L Alkaline Phosphatase 64 (34-104) U/L Total Protein 7.5 (6.0-8.3) gm/dl Albumin 4.3 (3.4-5.0) gm/dl Globulin 3.2 (2.5-4.0) gm/dl Albumin/Globulin Ratio 1.3 (0.9-2) Lipase 5 L (11-82) U/L Urine Color Urine Appearance (Clear) Urine pH (4.5-7.5) Ur Specific [place] (1.000-1.030) Urine Protein (Negative) Urine Glucose (UA) (Negative) Urine Ketones (Negative) Urine Blood (Negative) Urine Nitrite (Negative) Urine Bilirubin (Negative) Urine Urobilinogen (Negative) Ur Leukocyte Esterase (Negative) Urine WBC (Auto) (0-5) /hpf Urine RBC (Auto) (0-4) /hpf U Hyaline Cast (Auto) (0-5) /lpf U Epithel Cells (Auto) (0-5) /lpf Urine Bacteria (Auto) (Negative) Urine Mucus (None Prsent) POC Ur Test (NEG) SARS-CoV-2, RNA, NAAT NEGATIVE (NEGATIVE) Imaging Data Radiologist's Impression: Abdomen/Pelvis CT 02/07/22 03:[address] WITH IV AND ORAL CONTRAST CT DOSE: 389.91 mGy.cm HISTORY: Right lower quadrant abdominal pain. TECHNIQUE: Multiaxial CT images of the abdomen and pelvis were performed following the use of intravenous and oral contrast. A dose lowering technique was utilized adhering to the principles of ALARA. COMPARISON STUDY: Abdomen and pelvis CT 10/29/2021. FINDINGS: The lung bases are clear. No pneumoperitoneum. No pneumatosis. No fractures within the visualized osseous structures. The liver, gallbladder, spleen, adrenal glands, pancreas, and kidneys are unremarkable. No hydronephrosis. The main portal vein is patent. No retroperitoneal lymphadenopathy. Normal caliber abdominal aorta. The bladder is unremarkable. An intrauterine device appears in good position. A 1.4 cm thick-walled cyst within the left ovary. This favors a corpus luteum. Normal appendix. Distended and stool-filled distal ileum to the level of the cecal valve with mild adjacent fat stranding and trace fluid. The distended terminal ileum measures 4.1 cm in diameter. 4, this is consistent with a small bowel obstruction with the transition point located at the ileocecal valve. Stomach is also mildly distended. IMPRESSION: 1. Small bowel obstruction with the transition point at the ileocecal valve. GI consultation recommended to evaluate for possible underlying stricture or lesion. 2. Normal appendix. 3. Intrauterine device is in good position. ACT 112: Negative or not required by law. Electronically signed by: Jas Crowder M.D. 02/07/2022 7:27 AM MDM Narrative Physical exam and history were performed. Nursing notes, EMR, and Medication List were personally reviewed. Patient appears to have right lower quadrant abdominal pain bringing her to the emergency department. The patient does not appear toxic on exam. She does not have a history of abdominal surgery. IV access was established and labs were obtained. She was hydrated with normal saline and given IV morphine and IV Zofran for comfort. She was prepped for CT with IV and oral contrast. The patient's blood work is as above and was reviewed. She does not have a significantly elevated white blood cell count, gross anemia, bandemia, or significant electrolyte imbalance. Lipase and transaminases are not diagnostic. She is not . CT scan was performed and reviewed by myself and radiology. CT scan is concerning as it appears to show a small bowel obstruction. I did discuss the case with the on-call gastroenterology team, who recommended admission to the facility. NG tube was placed and the patient was discussed with the hospitalist service. Please see their dictations for further patient course, plan, and disposition. The chart was completed utilizing Dragon Speech Voice Recognition Software. Grammatical errors, random word insertions, pronoun errors, and incomplete se ntences are an occasional consequence of this system due to software limitations, ambient noise, and hardware issues. Any formal questions or concerns about the content, text, or information contained within the body of this dictation should be directly addressed to the provider for clarification. . Impression & Plan SBO (small bowel obstruction) Discharge Plan Visit Data Chief Complaint: Abdominal Pain Stated Complaint: SEVERE ABD PAIN,WEAKNESS ED Provider: Ignacia Milligan ED Midlevel Provider: Malachi García Discharge Problem: SBO (small bowel obstruction) Patient Disposition: Admitted As Inpatient Discharge Instructions Interventions: ED Discharge Assessment Last Done: 02/07/22 10:59
--- NOTE | 2022-02-08 04:38 | Communication Note ---
Date of Service: February 08, 2022 Night resident note Last night around 20:00, I was notified by RN that patient had vomited, and RN was concerned about the NG tube possibly having been dislodged. I ordered a CXR which showed the NG tube was in place, and a KUB which showed persistent SBO without overt worsening. I ordered an EKG to check patient's QTc in case she would require additional zofran beyond what was previously ordered. QTc came back at 435, though patient did not end up needing additional zofran as her nausea had improved. I was also notified that patient had persistent throat pain which started earlier in the day after NG tube placement. Patient had been ordered carafate, though patient reported this had not helped her pain. I ordered viscous lidocaine 10mL to be gargled and swallowed. I discussed this beforehand with the overnight attending, and we agreed that viscous lidocaine posed little risk to patient despite being strict NPO due to the low volume of viscous lidocaine. Nagi Henriquez MD, PGY-2 Resident Activity Tracking Resident Involvement: Resident Care Provided Care Provided: [facility] Medicine
[2022-02-08] MEDS: LACTATED RINGER'S 1,000 ML IV SCH ×3 (05:06→19:08)
[2022-02-08 07:55] LABS: Basophils # (auto) 0.02 K/uL (0-0.2); Basophils % (auto) 0.2 %; Eosinophils # (auto) 0.11 K/uL (0-0.5); Eosinophils % (auto) 1.3 %; Hematocrit (blood only) 35.5 % (37-47); Hemoglobin 11.6 g/dL (12.0-16.0); Immature Granulocytes # (auto) 0.02 K/uL (0.00-0.02); Immature Granulocytes % (auto) 0.2 %; Lymphocytes # (auto) 1.94 K/uL (1.2-3.4); Mean Corpuscular Hemoglobin 27.3 pg (25-34); Mean Corpuscular Volume 83.5 fL (80-100); Mean Platelet Volume 8.8 fL (7.4-10.4); Monocytes # (auto) 0.56 K/uL (0.11-0.59); Monocytes % (auto) 6.4 %; Neutrophils # (auto) 6.15 K/uL (1.4-6.5); Neutrophils % (auto) 69.9 %; Platelet Count 261 K/uL (130-400); RDW Coefficient of Variation 12.8 % (11.5-14.5); Red Blood Count 4.25 M/uL (4.2-5.4)
[2022-02-08 07:57] LABS: Mean Corpuscular Hgb Conc 32.7 g/dL (32-36)
[2022-02-08 08:07] LABS: Anion Gap 6 (3-11); BUN Creatinine Ratio 19.2 (10-20); Blood Urea Nitrogen 10 mg/dl (6-23); Calcium 8.6 mg/dl (8.5-10.1); Carbon Dioxide 25 mmol/L (21-32); Chloride 106 mmol/L (98-107); Creatinine Clr Calc Pharmacy 169.5 ml/min; Est GFR (African American) > 150.0 ml/min; Est GFR (Non-African American) 135.6 ml/min; Glucose 85 mg/dl (70-99(Fasting)); Potassium 3.6 mmol/L (3.5-5.1); Sodium 137 mmol/L (136-145)
--- NOTE | 2022-02-08 09:52 | XRay Report ---
KUB HISTORY: Acute generalized abdominal pain with reported small bowel obstruction f/u sbo COMPARISON: KUB 02/07/2022 FINDINGS: And enteric tube is present with distal tip and side-port within the expected location of t he proximal gastric lumen. Interval progression of enteric contrast into the large bowel. Air-filled loops of small bowel measure up to 3.2 cm, previously 4.2 cm. Suggested tampon within the vagina. Int rauterine device is present. No renal calculi. No ureteral calculi. No pneumoperitoneum or pneumatos is. No fracture. IMPRESSION: 1. Mild persistent small bowel distention with interval progression of enteric contrast into the larg e bowel. Findings are compatible with a partial small bowel obstruction. 2. Distal tip of enteric tube terminates within the proximal stomach. ACT 112: Negative or not required by law. The above report was generated using voice recognition software. It may contain grammatical, syntax o r spelling errors. Electronically signed by: Hector Mcallister M.D. 02/08/2022 9:50 AM
[2022-02-08] MEDS: PANTOprazole 40 MG in SYRINGE 0 ML IV SCH (11:20)
[2022-02-08] MEDS ORDERED: LIDOCAINE VISCOUS 2% 15 ML UDC MT PRN (12:08)
[2022-02-08] MEDS ORDERED: KETOROLAC TROMETHAMINE 15 MG/ML VIAL IV PRN (12:12)
--- NOTE | 2022-02-08 12:13 | Hospitalist Progress Note ---
Date of Service February 08, 2022 Assessment & Plan (1) SBO (small bowel obstruction): Plan: - SBO in a [place] abdomen with transition point at the ileocecal valve--suspic ious for crohn's - Leukocytosis resolved, suspect reactive in nature, Procal negative - NGT still in place with copious gastric contents in canister - IVF w/ LR at 125 ml/hr - Pain control ordered with Morphine (dosed according to pain scale) and Tylenol IV for mild pain - Zofran PRN n/v - Consult GI, Dr. Harkins, appreciate recommendations - F/U KUB this AM demonstrates migration of contrast into large intestine, pt with flatus and clinical improvement - For now, maintain NGT, will order viscous lidocaine to try and alleviate discomfort - May clamp NGT and try ice chips and small sips of clears, if she remains pain free, can remove NGT this afternoon (2) Depression: Plan: - Appropriate mood and affect, on no medications (3) Vitamin D deficiency: Plan: - Hold Vitamin D supplementation while NPO Plan: Interventions as above. Will encourage ambulation since NGT will be clamped. No need for f/u labs in AM. Tentatively for colonoscopy on Thursday w/ Dr. Harkins. NPO after MN on Thursday. Will stick with primarily clears-liquid diet until after her procedure. Plan d/w Dr. Peña. Admission and Anticipated Discharge Date Admission Date: February 07, 2022 Subjective Patient seen on daily rounds this morning. She reports that she feels much better today. She has no abdominal pain at present and denies nausea. She is passing flatus. No BM yet. She is c/o irritation/discomfort related to the NGT and asking for it to removed as soon as possible. Review of Systems Review of Systems: All systems reviewed and are unremarkable except as noted in HPI and below. Denies fever, chills, fatigue, headache, nasal congestion, sore throat, cough, chest pain, shortness of breath, palpitations, orthopnea, PND, v/d, constipation, dysuria, hematuria, frequency, back pain, joint pain or swelling, easy bruising or bleeding, skin lesions or rashes. Physical Exam Physical Exam: GENERAL: 21 yo well-developed, well-nourished WF. NAD. LUNGS: Clear to auscultation bilaterally. No accessory muscle use. No W/R/R. CARDIOVASCULAR: Regular rate and rhythm. ABDOMEN: Soft, nondistended, minimally TTP in RLQ. No rebound tenderness or guarding. +BS in all 4 quad. EXTREMITIES: No edema. Non-tender. Peripheral pulses +2/4. NEUROLOGIC: A&O x3. PSYCHIATRIC: Cooperative. Appropriate mood and affect. SKIN: Warm, dry, intact. No rashes or lesions. Results & Data Results & Data ([facility]) Vital Signs (Past 12 Hours) Vital Signs Pulse Resp BP Pulse Ox 02/08/22 06:59 103 H 16 114/79 99 Laboratory Results 02/08/22 07:44 02/08/22 07:06 Diagnostic Findings KUB X-Ray 02/08/22 08:00 KUB HISTORY: Acute generalized abdominal pain with reported small bowel obstruction f/u sbo COMPARISON: KUB 02/07/2022 FINDINGS: And enteric tube is present with distal tip and side-port within the expected location of the proximal gastric lumen. Interval progression of enteric contrast into the large bowel. Air-filled loops of small bowel measure up to 3.2 cm, previously 4.2 cm. Suggested tampon within the vagina. Intrauterine device is present. No renal calculi. No ureteral calculi. No pneumoperitoneum or pneumatosis. No fracture. IMPRESSION: 1. Mild persistent small bowel distention with interval progression of enteric contrast into the large bowel. Findings are compatible with a partial small bowel obstruction. 2. Distal tip of enteric tube terminates within the proximal stomach. ACT 112: Negative or not required by law. The above report was generated using voice recognition software. It may contain grammatical, syntax or spelling errors. Electronically signed by: Hector Mcallister M.D. 02/08/2022 9:50 AM PG Care Time/CCT Total # of Minutes Spent Total Time Spent with Patient: Total time spent is greater than 50% in coordination of care (as documented) at patient's floor/unit and/or counseling patient: Coding Level of Care Code 51752 Subseq Hosp Care Lvl 2 Diagnoses SBO (small bowel obstruction) K56.609 Depression F32.A Vitamin D deficiency E55.9
--- NOTE | 2022-02-08 12:51 | Gastroenterology Progress Note ---
Date of Service February 08, 2022 Assessment & Plan (1) Abnormal CT scan, colon: (2) SBO (small bowel obstruction): Plan: NG tube was removed without difficulty. OK to advance to clear liquid diet If she tolerates clear liquids, will plan for bowel prep tomorrow and co lonoscopy on Thursday Continue current meds and supportive care. Admission and Anticipated Discharge Date Admission Date: February 07, 2022 Subjective Feeling much better today. Has passed gas and had a BM today per the patient. NG tube has been clamped and she denies pain or distention. She states that her throat is very sore from NG tube. She is asking for it to be removed. She has tolerated ICE chips today without difficulty. No further complaints. Review of Systems Constitutional: as per Subjective / HPI Eyes: as per Subjective / HPI Ear, Nose, Mouth, Throat: as per Subjective / HPI Respiratory: as per Subjective / HPI Cardiovascular: as per Subjective / HPI Gastrointestinal: as per Subjective / HPI Musculoskeletal: as per Subjective / HPI Integumentary: as per Subjective / HPI Neurologic: as per Subjective / HPI Psychiatric: as per Subjective / HPI Endocrine: as per Subjective / HPI Hematologic / Lymphatic: as per Subjective / HPI Allergy / Immunological: as per Subjective / HPI Physical Exam Constitutional: WD/WN, vitals as above Respiratory: normal respiratory effort, lungs clear to auscultation Cardiovascular: RRR, no murmur, no edema Gastrointestinal (Abdomen): normal bowel sounds, soft, nontender, no hepatosplenomegaly Psychiatric: A+Ox3, euthymic affect Results & Data Results & Data ([facility]) Vital Signs (Past 12 Hours) Vital Signs Pulse Resp BP Pulse Ox 02/08/22 06:59 103 H 16 114/79 99 PG Care Time/CCT Total # of Minutes Spent Total Time Spent with Patient: Total time spent is greater than 50% in coordination of care (as documented) at patient's floor/unit and/or counseling patient: Coding Level of Care Code 95401 Subseq Hosp Care Lvl [address] scan, colon R93.3 SBO (small bowel obstruction) K56.609
[2022-02-09] MEDS: LACTATED RINGER'S 1,000 ML IV SCH (02:54)
--- NOTE | 2022-02-09 11:08 | Gastroenterology Progress Note ---
Date of Service February 09, 2022 Assessment & Plan (1) SBO (small bowel obstruction): (2) Abnormal CT scan, colon: Plan: Clear liquid diet Bowel prep tonight NPO following bowel prep Colonoscopy tomorrow Continue supportive care Admission and Anticipated Discharge Date Admission Date: February 07, 2022 Subjective Feeling better today following removal of NG tube. Does complain of some mild abdominal pain throughout, rated at 2-3/10 in intensity, worsened with intake of clears. She has been passing gas, but has not had a BM today. Denies fevers, chills, nausea, vomiting, hematemesis, melena or hematochezia. No further complaints. Review of Systems Constitutional: as per Subjective / HPI Eyes: as per Subjective / HPI Ear, Nose, Mouth, Throat: as per Subjective / HPI Respiratory: as per Subjective / HPI Cardiovascular: as per Subjective / HPI Gastrointestinal: as per Subjective / HPI Musculoskeletal: as per Subjective / HPI Integumentary: as per Subjective / HPI Neurologic: as per Subjective / HPI Psychiatric: as per Subjective / HPI Endocrine: as per Subjective / HPI Hematologic / Lymphatic: as per Subjective / HPI Allergy / Immunological: as per Subjective / HPI Physical Exam Constitutional: WD/WN, vitals as above Eyes: + anicteric sclerae Respiratory: normal respiratory effort, lungs clear to auscultation Cardiovascular: RRR, no murmur, no edema Gastrointestinal (Abdomen): Inspection/Auscultation: abdomen normal to inspection; abdomen not distended and + abnormal bowel sounds Percussion/Palpation: + abdomen tender (generalized) and abdomen soft; no guarding, abdomen not rigid and no hepatosplenomegaly Skin: no rashes, warm and dry Psychiatric: A+Ox3, euthymic affect Results & Data Results & Data ([facility]) Vital Signs (Past 12 Hours) Vital Signs Temp Pulse Resp BP Pulse Ox 02/09/22 07:40 37.1 C 79 16 118/71 97 PG Care Time/CCT Total # of Minutes Spent Total Time Spent with Patient: Total time spent is greater than 50% in coordination of care (as documented) at patient's floor/unit and/or counseling patient: Coding Level of Care Code 77194 Subseq Hosp Care Lvl 3 Diagnoses SBO (small bowel obstruction) K56.[address] scan, colon R93.3
--- NOTE | 2022-02-09 11:58 | Hospitalist Progress Note ---
Date of Service February 09, 2022 Assessment & Plan (1) SBO (small bowel obstruction): Plan: - SBO in a [place] abdomen with transition point at the ileocecal valve--suspicious for crohn's - Leukocytosis resolved, suspect reactive in nature, Procal negative - NGT removed on 02/08, diet advanced to clears which she is tolerating - Pain meds in place (Morphine, APAP, Toradol) - Zofran PRN n/v - Consult GI, Dr. Harkins, appreciate recommendations--to perform colo on 02/10 - Continue liquids today, colon prep ordered, NPO after MN in preparation for procedure tomorrow (2) Depression: Plan: - Appropriate mood and affect, on no medications (3) Vitamin D deficiency: Plan: - Hold Vitamin D supplementation while NPO Plan: As above. Anticipate d/c home after procedure tomorrow. Plan d/w Dr. Peña. Admission and Anticipated Discharge Date Admission Date: February 07, 2022 Subjective Pt seen on rounds this morning. She is resting comfortably in bed. Feels much better since NGT removed. Some mild abd pain/soreness, more so in LLQ today, feels that it could be related to constipation + period cramps. She did have a BM yesterday, stool hard. Still passing flatus. Denies fever, chills, cp, dyspnea, n/v. Tolerating clear liquids. For colonoscopy tomorrow w/ Dr. Harkins. Review of Systems Review of Systems: All systems reviewed and are unremarkable except as noted in HPI and below. Denies fever, chills, fatigue, headache, nasal congestion, sore throat, cough, chest pain, shortness of breath, palpitations, orthopnea, PND, v/d, constipation, dysuria, hematuria, frequency, back pain, joint pain or swelling, easy bruising or bleeding, skin lesions or rashes. Physical Exam Physical Exam: GENERAL: 21 yo well-developed, well-nourished WF. NAD. LUNGS: Clear to auscultation bilaterally. No accessory muscle use. No W/R/R. CARDIOVASCULAR: Regular rate and rhythm. ABDOMEN: Soft, nondistended, minimally TTP more so today in LLQ. No rebound tenderness or guarding. +BS in all 4 quad. EXTREMITIES: No edema. Non-tender. Peripheral pulses +2/4. NEUROLOGIC: A&O x3. PSYCHIATRIC: Cooperative. Appropriate mood and affect. SKIN: Warm, dry, intact. No rashes or lesions. Results & Data Results & Data ([facility]) Vital Signs (Past 12 Hours) Vital Signs Temp Pulse Resp BP Pulse Ox 02/09/22 07:40 37.1 C 79 16 118/71 97 Laboratory Results None Diagnostic Findings None PG Care Time/CCT Total # of Minutes Spent Total Time Spent with Patient: Total time spent is greater than 50% in coordination of care (as documented) at patient's floor/unit and/or counseling patient: Coding Level of Care Code 33341 Subseq Hosp Care Lvl 2 Diagnoses SBO (small bowel obstruction) K56.609 Depression F32.A Vitamin D deficiency E55.9
[2022-02-09] MEDS: PANTOprazole 40 MG in SYRINGE 0 ML IV SCH (12:15)
[2022-02-09] MEDS: LAVAGE SOLUTION 4000ML PO SCH (18:17)
[2022-02-10] MEDS: LAVAGE SOLUTION 4000ML PO SCH (02:18)
--- NOTE | 2022-02-10 06:12 | Electrocardiogram Report ---
Test Reason : Blood Pressure : / mmHG Vent. Rate : 089 BPM Atrial Rate : 089 BPM P-R Int : 122 ms QRS Dur : 084 ms QT Int : 358 ms P-R-T Axes : 024 078 012 degrees QTc Int : 435 ms Normal sinus rhythm T wave abnormality, consider anterior ischemia Abnormal ECG When compared with ECG of 22-OCT-2018 03:38, T wave inversion more evident in Anterior leads Confirmed by Marco Antonio Contreras ([id number]) on 02/10/2022 6:12:24 AM Referred By: REFERRED SELF Confirmed By:Marco Antonio Contreras
--- NOTE | 2022-02-10 09:38 | History & Physical Bridge Note ---
Date of Service February 10, 2022 History & Physical Bridge Note I have examined the patient, reviewed the History & Physical and in the interval since the performance of the History & Physical I have noted the following changes of clinical significance: no changes noted Patient is a 21 yo female with small bowel obstruction and abnormal CT imaging of the IC valve. She has been NPO with the exception of her bowel prep. She has been NPO since Thursday when admitted for SBO. She denies further abdominal pain, rectal bleeding, diarrhea, or other GI complaints at present. She consumed 80% of her bowel prep but was unable to continue. She does note that her stools are clear at this point. Keep NPO. Proceed with colonoscopy today. Supervising Physician Co-Signing Physician Notes Agree with UYEN Wellington as above Abd: Soft, NT, ND, +BS Proceed with colonoscopy now
[2022-02-10] MEDS: PANTOprazole 40 MG in SYRINGE 0 ML IV SCH (11:28)
--- NOTE | 2022-02-10 12:06 | Discharge Summary ---
Date of Service February 10, 2022 Admission HPI Per Admitting Provider Vero Brown is a 21 yo WF with a pmhx of depression, asthma, and vitamin D deficiency who takes no medications who presented to the ER c/o abdominal pain that began around 6pm last evening. Pt reports epigastric dull pain that started around 6pm. She went to bed but awoke from sleep due to acutely worsening pain that she describes as intermittent sharp pains across her upper abdomen and on the right side. She describes it as "worse than labor pains." She subsequently presented to the ER. She reported nausea in route but no vomiting. She notes a similar episode about 2 months ago after eating cashews and last evening was eating almonds prior to onset of pain. She presented to the ED then but was not hospitalized. She was referred to GI as an outpatient and does have an upcoming appointment at the end of February to schedule a colonoscopy. She also admits to having chronic constipation since having her daughter 2 years ago. She has a family history in her maternal grandmother of IBS but denies IBD history. She has had BRB in her stool on occasion but isn't sure if this is related to hemorrhoids which she believes she has. She denies melena. Work up in the ER demonstrated a mild leukocytosis with left shift and radiologic evidence of an SBO with a transition point at the ileocecal valve. Case was d/w Dr. Harkins who advised admission and possible inpatient colonoscopy. NGT has not yet been placed, pt is requesting that her be present for support prior to it being placed. Morphine was provided as well as Zofran in the ED with symptomatic improvement. Presently, she reports pain and nausea seems to be returning. Denies fever, chills, diarrhea, chest pain, SOB, or symptoms. Principal Diagnosis SBO -- resolved Discharge Exam GENERAL: 21 yo well-developed, well-nourished WF. NAD. LUNGS: Clear to auscultation bilaterally. No accessory muscle use. No W/R/R. CARDIOVASCULAR: Regular rate and rhythm. ABDOMEN: Soft, nondistended, nontender. +BS in all 4 quad. EXTREMITIES: No edema. Non-tender. Peripheral pulses +2/4. NEUROLOGIC: A&O x3. PSYCHIATRIC: Cooperative. Appropriate mood and affect. SKIN: Warm, dry, intact. No rashes or lesions. Discharge Data Allergies Allergy/AdvReac Type Severity Reaction Status Date / Time No Known Drug Allergies Allergy Unknown Verified 02/10/22 15:05 Consultations 02/07/22 08:01 ED Decision to Admit Stat 02/07/22 11:54 Consult Gastroenterology Routine Procedures Performed Operation Date: 02/10/22 16:00 Colonoscopy by Case Ordered Studies Abdomen/Pelvis CT 02/07/22 03:[address] WITH IV AND ORAL CONTRAST CT DOSE: 389.91 mGy.cm HISTORY: Right lower quadrant abdominal pain. TECHNIQUE: Multiaxial CT images of the abdomen and pelvis were performed following the use of intravenous and oral contrast. A dose lowering technique was utilized adhering to the principles of ALARA. COMPARISON STUDY: Abdomen and pelvis CT 10/29/2021. FINDINGS: The lung bases are clear. No pneumoperitoneum. No pneumatosis. No fractures within the visualized osseous structures. The liver, gallbladder, spleen, adrenal glands, pancreas, and kidneys are unremarkable. No hydronephrosis. The main portal vein is patent. No retroperitoneal lymphadenopathy. Normal caliber abdominal aorta. The bladder is unremarkable. An intrauterine device appears in good position. A 1.4 cm thick-walled cyst within the left ovary. This favors a corpus luteum. Normal appendix. Distended and stool-filled distal ileum to the level of the cecal valve with mild adjacent fat stranding and trace fluid. The distended terminal ileum measures 4.1 cm in diameter. 4, this is consistent with a small bowel obstruction with the transition point located at the ileocecal valve. Stomach is also mildly distended. IMPRESSION: 1. Small bowel obstruction with the transition point at the ileocecal valve. GI consultation recommended to evaluate for possible underlying stricture or lesion. 2. Normal appendix. 3. Intrauterine device is in good position. ACT 112: Negative or not required by law. Electronically signed by: Jas Crowder M.D. 02/07/2022 7:27 AM Chest X-Ray 02/07/22 14:09 XR chest 1V portable HISTORY: NGT placement COMPARISON: None. FINDINGS: No pneumothorax. No pleural effusions. The heart is normal in size. Nasogastric tube terminates in the body the stomach. The lungs are clear. IMPRESSION: Nasogastric tube terminates in the stomach. ACT 112: Negative or not required by law. Electronically signed by: Jas Crowder M.D. 02/07/2022 2:46 PM Chest X-Ray 02/07/22 20:17 SINGLE VIEW CHEST CLINICAL HISTORY: Enteric tube placement. Vomiting. FINDINGS: 2 AP, portable, upright chest radiographs are compared to study dated 02/07/2022. An enteric tube is unchanged in position. The tip projects below the diaphragm over the proximal stomach. The cardiomediastinal silhouette is unremarkable. The lungs and pleural spaces are clear. No pneumothorax is seen. The bony thorax is grossly intact. IMPRESSION: 1. The lungs are clear. 2. An enteric tube is in place as above. ACT 112: Negative or not required by law. Electronically signed by: Jake Marmolejo M.D. 02/07/2022 8:59 PM KUB X-Ray 02/07/22 20:27 KUB CLINICAL HISTORY: Small bowel obstruction. FINDINGS: 2 AP, portable, supine abdominal radiographs are correlated with abdominal CT dated 02/07/2022. An enteric tube projects below the diaphragm over the stomach. There is evidence of persistent small bowel obstruction. The small bowel loops are distended with residual enteric contrast and measure up to 4.2 cm. No evidence of intraperitoneal free air is seen on these supine images. Fecal retention is noted in the right colon. The bladder is filled with excreted IV contrast. An intrauterine device is seen in the pelvis. The bony structures appear intact. IMPRESSION: Persistent small bowel obstruction. Electronically signed by: Jake Marmolejo M.D. 02/07/2022 10:51 PM KUB X-Ray 02/08/22 08:00 KUB HISTORY: Acute generalized abdominal pain with reported small bowel obstruction f/u sbo COMPARISON: KUB 02/07/2022 FINDINGS: And enteric tube is present with distal tip and side-port within the expected location of the proximal gastric lumen. Interval progression of enteric contrast into the large bowel. Air-filled loops of small bowel measure up to 3.2 cm, previously 4.2 cm. Suggested tampon within the vagina. Intrauterine device is present. No renal calculi. No ureteral calculi. No pneumoperitoneum or pneumatosis. No fracture. IMPRESSION: 1. Mild persistent small bowel distention with interval progression of enteric contrast into the large bowel. Findings are compatible with a partial small bowel obstruction. 2. Distal tip of enteric tube terminates within the proximal stomach. ACT 112: Negative or not required by law. The above report was generated using voice recognition software. It may contain grammatical, syntax or spelling errors. Electronically signed by: Hector Mcallister M.D. 02/08/2022 9:50 AM Hospital Course (1) SBO (small bowel obstruction): - SBO in a [place] abdomen with transition point at the ileocecal valve--suspicious for Crohn's, also question possible celiac's due to some food intolerances - Mild leukocytosis noted on admission but felt to be reactive, no abx started - Procalcitonin obtained and was WNL - Kept NPO and hydrated with IVF - NGT inserted and placed on LIS - Follow up KUB on 02/08 demonstrated migration of contrast into the large intestine, clinically was passing gas and pain free - NGT removed on 02/08, diet advanced to clears which she tolerated - IV Pain meds ordered (Morphine, APAP, Toradol) and IV antiemetics ordered - Consulted GI, seen by Dr. Harkins, appreciate recommendations--performed colo on 02/10 - Scope demonstrated a stenotic ileocecal valve but no gross evidence of Crohn's, biopsies taken - GI advised diet and pt could be discharged home w/ outpt follow up (2) Depression: - Appropriate mood and affect, on no medications (3) Vitamin D deficiency: - Can resume Vitamin D supplementation She is currently in recovery, will plan for transfer back to floor. Diet ordered, start with clears, if tolerating ok, can have a regular diet. If she eats and tolerates, she may be discharged home. She will require someone to drive her due to having anesthesia for her procedure. Would advise f/u with her primary care provider within 1 week of discharge. Also, GI will contact her to schedule follow up once the results of her biopsies are back to review and determine if anything more is needed. Would advise high fiber diet to help combat constipation. She may also need to incorporate daily Miralax or stool softener. She is felt to be medically and hemodynamically stable for discharge home today. Above plan of care has been d/w Dr. Peña who will also see this patient prior to discharge. Total Time Total Time Spent Total Time Spent (In Minutes): >30 minutes Discharge Plan Discharge Items Patient Disposition: Home - Self-Care Reason For Visit: SBO Discharge Diagnosis: small bowel obstruction Activity: Resume your previous activity Non-emergency contact: Primary Care Provider and Noc Analyst Call non-emergency contact if: you have any medication questions and your symptoms worsen Follow-up/Referrals: Lars Joy, [Primary Care Provider] - Diet: Regular Addtl Attending Provider Instructions: You were hospitalized due to small bowel obstruction which we believe was the cause of your abdominal pain and nausea. In order to treat this condition, you were not given anything to eat or drink, given IV fluids, pain medications, and anti-nausea medications. Also, a nasogastric tube was inserted and this was to alleviate the pressure from your upper GI tract related to your obstruction. You responded well to conservative treatment but due to the location of the obstruction, it was advised that you undergo a colonoscopy during your hospitalization. Your colonoscopy was completed 02/10/[address] Harkins with the following findings and recommendations: Pending Studies at Discharge: Yes Studies:: Biopsies taken during colonoscopy Stand-Alone Forms: My [facility], Smoking Cessation Medications and DC Order Prescriptions: Continued cholecalciferol (vitamin D3) 50 mcg (2,000 unit) capsule 2,000 unit PO DAILY Qty: 30 RF: 0 Discharge Orders: Discharge Order (Routine); Ordered 02/10/22 Ordered By: Marcia Jefferson Admission Data Admit Date/Time: 02/07/22 10:03 Attending Provider: Bob Peña Admit Provider: Bob Peña Primary Care Provider: Lars Joy Other Providers: Bob Peña ; Thad Harkins Other Interventions: Discharge Summary Assessment (RN) Last Done: 02/10/22 16:43 Coding Level of Care Code D/C DAY MANAGEMENT >30 MINS Diagnoses SBO (small bowel obstruction) K56.609 Depression F32.A Vitamin D deficiency E55.9
[2022-02-10] MEDS ORDERED: ATROPINE SULFATE 0.1 MG/ML 10ML SYR IV PRN ×2 (14:23→15:16)
[2022-02-10] MEDS ORDERED: ePHEDrine sulfate 50 MG/ML AMP IV PRN ×2 (14:23→15:16)
--- NOTE | 2022-02-10 14:23 | Anesthesiology Consultation ---
Date of Service February 10, 2022 Assessment & Plan Chart Review Chart Review: Acceptable Risk for Surgery and Patient NOT seen in Pre Admission Testing Consults Requested none ASA ASA2 Proposed Anesthesia Anesthesia Type: MAC History Surgery Operation Date: 02/10/22 16:00 Proposed Procedures p Colonoscopy Dr. Torin Wells Case, DO Height/Weight Height: 5 ft 5 in Weight: 72.7 kg Allergies Allergy/AdvReac Type Severity Reaction Status Date / Time No Known Drug Allergies Allergy Unknown Verified 02/07/22 06:36 Medications Home Medications Medication Instructions Recorded Confirmed Last Taken cholecalciferol (vitamin D3) 50 2,000 unit PO DAILY #30 cap 12/26/21 02/07/22 Unknown mcg (2,000 unit) capsule Active Medications Generic Name Dose Route Start Last Admin Trade Name Freq PRN Reason Stop Dose Admin Pantoprazole Sodium 40 mg/ 10 mls @ 5 mls/min 02/07/22 11:54 02/10/22 11:28 Syringe IV 03/09/22 11:53 5 mls/min DAILY@1100 KEEGAN Administration Morphine Sulfate 4 mg 02/07/22 11:54 02/07/22 20:16 Morphine Sulfate 4 Mg/Ml 1 Ml Carp\Vial IV 02/21/22 11:53 4 mg Q3H PRN Administration Pain scale 7-10 Ondansetron HCl 4 mg 02/07/22 10:05 02/07/22 21:02 Ondansetron Inj 2 Mg/Ml 2 Ml Vial IV 03/09/22 10:14 4 mg Q6H PRN Administration nausea/vomiting Phenol 5 sprays 02/07/22 14:10 02/08/22 11:22 Chloraseptic 1.4% Soln 180 Ml Btl MT 03/09/22 14:09 5 sprays Q2H PRN Administration Sore Throat Sucralfate 1 gm 02/07/22 17:00 02/07/22 17:26 Sucralfate 1 Gm/10 Ml Udc PO 03/09/22 16:59 1 gm QID KEEGAN Administration Past Medical History Medical History Asthma Depression Granulation tissue History of varicella vaccination Vitamin D deficiency Exercise / Class Metabolic Activity II 4-5 Yardwork/Stairs/Walk up hill Past Family History Family History Grandmother (Maternal) Endometriosis great grandmother Dyslipidemia Mother Multiple gestation Other No significant family history Denies family history of Ovarian cancer Prostate cancer Myocardial infarction Breast cancer Colorectal cancer Past Surgical History Surgical History History of adenoidectomy S/P tonsillectomy S/P wisdom tooth extraction Past Anesthesia History No Hx of Anesthesia Complications and No Family Hx of Anesthesia Complications History of PONV No Hx of PONV and No Hx of Motion Sickness Social History Smoking Status: Never smoker Do You Dip or Chew Tobacco: No Hx Alcohol Use: No Hx Substance Use: No Physical Exam Vital Signs Last Vital Signs Temp 37.2 C 02/10/22 07:28 Pulse 86 02/10/22 07:28 Resp 16 02/10/22 07:28 BP 111/73 02/10/22 07:28 Pulse Ox 99 02/10/22 07:28 Testing Laboratory Results 02/08/22 07:44 02/08/22 07:06 Urine Color Yellow 02/07/22 03:15 Urine Appearance Cloudy (Clear) A 02/07/22 03:15 Urine pH 5.0 (4.5-7.5) 02/07/22 03:15 Ur Specific [place] 1.031 (1.000-1.030) H 02/07/22 03:15 Urine Protein Negative (Negative) 02/07/22 03:15 Urine Glucose (UA) Negative (Negative) 02/07/22 03:15 Urine Ketones Trace (Negative) H 02/07/22 03:15 Urine Nitrite Negative (Negative) 02/07/22 03:15 Ur Leukocyte Esterase Negative (Negative) 02/07/22 03:15 Urine WBC (Auto) 1-5 /hpf (0-5) 02/07/22 03:15 Urine RBC (Auto) 0-4 /hpf (0-4) 02/07/22 03:15 U Hyaline Cast (Auto) 0 /lpf (0-5) 02/07/22 03:15 U Epithel Cells (Auto) >30 /lpf (0-5) H 02/07/22 03:15 Urine Bacteria (Auto) Negative (Negative) 02/07/22 03:15 02/07/22 03:15 POC Ur Test NEG Electrocardiogram Date: 02/07/22 Findings: + NSR @ (at 89;T wave abnormality) Chest X-Ray Date: 02/07/22 Findings: + NAD
--- NOTE | 2022-02-10 16:18 | GI REPORT ---
Patient Name: Vero Brown Procedure Date: 02/10/2022 3:33 PM Date of : 2000 Admit Type: Inpatient Age: 21 Gender: Female Attending MD: Thad Harkins DO Procedure: Colonoscopy Providers: Thad Harkins DO Referring MD: Bob Peña Md Indications: Abnormal CT of the GI tract Medicines: Monitored Anesthesia Care Complications: No immediate complications. Estimated Blood Loss: Estimated blood loss: none. Procedure: Pre-Anesthesia Assessment: - Prior to the procedure, a History and Physical was performed, and patient medications and allergies were reviewed. The patient's tolerance of previous anesthesia was also reviewed. The risks and benefits of the procedure and the sedation options and risks were discussed with the patient. All questions were answered, and informed consent was obtained. Prior Anticoagulants: The patient has taken no previous anticoagulant or antiplatelet agents. ASA Grade Assessment: II - A patient with mild systemic disease. After reviewing the risks and benefits, the patient was deemed in satisfactory condition to undergo the procedure. After I obtained informed consent, the scope was passed under direct vision. Throughout the procedure, the patient's blood pressure, pulse, and oxygen saturations were monitored continuously. The scope was introduced through the anus and advanced to the terminal ileum. The colonoscopy was performed without difficulty. The patient tolerated the procedure well. The quality of the bowel preparation was good. The terminal ileum, ileocecal valve, appendiceal orifice, and rectum were photographed. Findings: The perianal and digital rectal examinations were normal. The terminal ileum appeared normal. Biopsies were taken with a cold forceps for histology. A benign-appearing, intrinsic mild stenosis measuring less than one cm (in length) x 1 cm (inner diameter) was found at the ileocecal valve and was traversed. The exam was otherwise without abnormality. Impression: - The examined portion of the ileum was normal. Biopsied. - Stricture at the ileocecal valve. - The examination was otherwise normal. Recommendation: - Return patient to [facility] for ongoing care. - Advance diet as tolerated. - Repeat colonoscopy for surveillance based on pathology results. Thad Harkins DO 02/10/2022 4:18:19 PM This report has been signed electronically. Note Initiated On: 02/10/2022 3:33 PM Number of Addenda: 0 I attest to the content of the Intraoperative Record and orders documented therein, exceptions below {[id number]}
--- NOTE | 2022-02-10 16:50 | Anesthesiology Progress Note ---
Date of Service February 10, 2022 Anesthesia Post Procedure Vital Signs Vital Signs: Temp Pulse Resp BP BP Pulse Ox 02/10/22 16:42 59 L 16 112/60 99 02/10/22 16:27 63 16 102/53 L 100 02/10/22 16:12 70 14 102/57 L 99 02/10/22 15:06 36.9 C 78 14 134/87 99 02/10/22 07:28 37.2 C 86 16 111/73 99 02/09/22 21:53 37 C 71 16 114/75 98 Pain Intensity Right Abdomen: Pain Intensity: 1 Bilateral Throat: Pain Intensity: 1 Transfer of Care Handoff Completed per policy Notes Mental Status: alert / awake / arousable Patient Amnestic to Procedure: Yes Nausea / Vomiting: adequately controlled Pain: adequately controlled Airway Patency, RR, SpO2: stable & adequate BP & HR: stable & adequate Hydration State: stable & adequate Anesthetic Complications: no major complications apparent and Pt Satisfied with anesthetic care
== END 2022-02-10 18:40 | disposition home or self-care (01) | DRG 387 ==
LOC: ED 02:58 → 3E 10:03

== ENCOUNTER 2024-03-29 11:30 | Inpatient (IN) ==
--- NOTE | 2024-03-29 12:37 | Emergency Department Note ---
Impression & Plan Perineal abscess ED Provider Note CHIEF COMPLAINT: Infection on the left perineal area x 1 week HISTORY OF PRESENT ILLNESS: Patient is a 5-week 23-year-old female who returns to the emergency department for continuing left rectal pain that is been going on since last week. She was seen and evaluated here in the emergency department 2 days ago for the same complaint. She was thoroughly evaluated. An ultrasound was performed which noted a 4 cm abscess. Bedside I&D was performed by provider and the site was packed. Patient has been on Augmentin since. The packing is still in place. She has had some minimal drainage from the area. She continues to note a hard, tender indurated area in the left rectal region. It has not gotten any better. She feels like the I&D procedure was not performed in the correct area. She also mentions concern about the ultrasound did not examine her area of pain. She has not had significant relief despite antibiotics. She is taking Tylenol and applying ice to the area. She tried calling [facility] [employer], she is supposed to see them for this in 2 days, but they did not have an appointment for her and thus referred her back to the emergency department. Patient is voiding and moving her bowels. She rates her pain a 7/10. REVIEW OF SYSTEMS: Review of systems as per HPI. All other systems reviewed were negative. At least 6 systems reviewed. a. PMH: External medical records are reviewed and summarized as above/below. See Problem List. SOCIAL HISTORY: Patient lives at home. PHYSICAL EXAM: Vital Signs: Reviewed Nurse's notes. CONSTITUTIONAL: Patient is a tearful 23-year-old female laying on the gurney. : Examination of the genital region with nurse marketing admin present note healthy appearing labia and vaginal area and introitus. The I&D site is in the perineal area to the left, between the posterior vagina and the rectal area. She is tender to palpation lateral to this, extending toward the perirectal area. It is firm and tender to palpation, but there is no fluctuance or pointing appreciated. EMERGENCY DEPARTMENT COURSE: Patient was seen and assessed as above. External medical records were reviewed including her ED visit from 2 days ago and ultrasound. Culture from that day notes a group B beta strep. Patient is on Augmentin which should be appropriate. She has continued pain and reports no improvement despite antibiotics and I&D. She feels that the I&D procedure and ultrasound were not done in the area of her maximal tenderness. I did discuss my concern for potential deeper space infection or perirectal involvement. Given this I did recommend performing a pelvic CT scan with IV contrast in order to better evaluate the area. Patient became quite tearful and upset, she is concerned with regards to the CT scan and her early . Alternatives were discussed with her including ultrasound or general surgery evaluation, but felt that general surgery would not likely intervene without imaging. After discussing options and explaining the risks, benefits and alternatives to all options, she would like to proceed with the repeat ultrasound of the area. She is aware that if ultrasound is inconclusive or unhelpful we may need to proceed with a CT scan. CBC with differential, CMP were collected. IV lock was initiated. Diagnostics, per my interpretation: Laboratory studies: Mildly elevated white count, 12, 800 with left shift. No significant electrolyte imbalance or JENIFER. Diagnostic imaging: Enlarging/persistent abscess of left perineum. Patient discussed with Dr. Hong. Test results discussed with patient. Given the worsening findings on ultrasound, I did recommend evaluation by general surgery. Patient was seen by the general surgery team, Dr. Brianna Madera and Natty Anderson PA-C. They requested IV antibiotics and MRI. They would like to admit the patient to the hospitalist service. Patient discussed with ED caseworker protective services and with Dr. Cervantes with the [facility] hospitalist service. He would like to hold on the admission, pending the MRI. General surgery had suggested there may be a need for colorectal evaluation and if this needed, she will require transfer as we do not have colorectal at our facility. Dr. Cervantes would prefer to not have to do an admission if she will ultimately be transferred. He will hold off on seeing the patient until the MRI has resulted. Patient discussed with Kristina Al PharmD, and we agreed on Zosyn. Patient was updated with the recommendations of general surgery. She was amenable to the MRI. Reviewed with MRI staff and the MRI will need to be without contrast due to the early . MRI pending at change of shift. Patient signed out to NATALIE Hall. Please refer to her dictation for MRI results and disposition. Past Med/Surg History Problem List (Updated 03/29/24 @ 16:55 by Radha Rod) First trimester (Acute) Perineal abscess (Acute) Medical History Acne Depression Vitamin D deficiency Granulation tissue History of varicella vaccination Asthma Surgical History History of adenoidectomy S/P tonsillectomy S/P wisdom tooth extraction Family History Grandmother (Maternal) Endometriosis great grandmother Dyslipidemia Mother Multiple gestation Other No significant family history Denies family history of Ovarian cancer Prostate cancer Myocardial infarction Breast cancer Colorectal cancer Social History Smoking Status: Never smoker Second Hand Exposure: No; Do You Dip or Chew Tobacco: No; Hx Alcohol Use: No Hx Substance Use: No Preferred Language: Comoran Communication Ability: Effective Visual Impairment: No Limitations Hearing Ability: Normal Solid Waste Truck Driver Required: No Beliefs That Will Affect Care: None marital status: Current Living Situation: Spouse and Family current occupational status: other 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 How many Children do You have: 1 Feels Safe at Home: Yes Childhood Exposure to Second-Hand Smoke: No Diet: vegetarian caffeine: Yes (coffee) Dental Care, Regularly: Yes Physical Activity Frequency: 3-4 Times per Week Seatbelt Use: always Sunscreen Use: Yes Do you think of yourself as: straight/heterosexual Assistive Devices: None Allergies Allergies Allergy/AdvReac Type Severity Reaction Status Date / Time No Known Allergies Allergy Verified 03/29/24 15:49 Home Meds Home Medications Medication Instructions Recorded Confirmed vit no.95-ferrous 1 tab PO DAILY 03/27/24 03/29/24 fumarate 28 mg-folic acid 800 mcg tablet () Previous Rx's Medication Instructions Recorded amoxicillin 875 mg-potassium 1 tab PO BID #14 tabs 03/27/24 clavulanate 125 mg tablet Results & Data (ED) Vital Signs Vital Signs - 24 hr 03/29/24 11:34 03/29/24 15:57 Temperature 36.5 C Temperature Source Temporal Artery Scan Pulse Rate 123 H Pulse Rate [Finger] 107 H Respiratory Rate 20 18 Respiratory Effort / Characteristics Non-Labored Spontaneous Non-Labored Spontaneous Respiratory Depth Normal Normal Blood Pressure 124/78 Blood Pressure [Left Arm] 118/73 Blood Pressure Mean 93 Blood Pressure Mean [Left Arm] 88 Blood Pressure Position [Left Arm] Lying Pulse Oximetry 97 99 Oxygen Delivery Method Room Air Room Air Sepsis Recent Fever Within 48 Hours No Sepsis New/Unexplained Change in Mental Status No Sepsis Action Taken by Nursing No Action Required Home Medications Current Medication List: was personally reviewed by me Laboratory Data Attestation: I reviewed the patient's lab results. 03/29/24 12:35 03/29/24 12:35 Lab Results 03/29/24 Range/Units 12:35 WBC 12.84 H (4.8-10.8) K/ul RBC 4.38 (4.20-5.40) M/uL Hgb 12.0 (12.0-16.0) g/dl Hct 36.2 L (37.0-47.0) % MCV 82.6 (80.0-100.0) fL MCH 27.4 (25.0-34.0) pg MCHC 33.1 (32.0-36.0) g/dL RDW Std Deviation 36.8 (36.4-46.3) fL RDW Coeff of Alison 12.1 (11.5-14.5) % Plt Count 334 (130-400) K/uL MPV 9.0 L (9.4-12.4) fL Immature Gran % (Auto) 0.5 % Neut % (Auto) 77.4 % Lymph % (Auto) 15.8 % [place] % (Auto) 5.8 % Eos % (Auto) 0.3 % Baso % (Auto) 0.2 % Neut # (Auto) 9.93 H (1.40-6.50) K/uL Lymph # (Auto) 2.03 (1.20-3.40) K/uL [place] # (Auto) 0.75 H (0.11-0.59) K/uL Eos # (Auto) 0.04 (0.00-0.50) K/uL Baso # (Auto) 0.03 (0.00-0.20) K/uL Immature Gran # (Auto) 0.06 (0.01-0.20) K/uL Sodium 134 L (136-145) mmol/L Potassium 3.4 L (3.5-5.1) mmol/L Chloride 103 (98-107) mmol/L Carbon Dioxide 24 (21-32) mmol/L Anion Gap 7 (3-11) BUN 9 (6-23) mg/dl Creatinine 0.61 (0.6-1.2) mg/dl Est Cr Clr Drug Dosing 141.2 ml/min Est GFR ( Amer) 147.1 ml/min Est GFR (Non-Af Amer) 126.9 ml/min BUN/Creatinine Ratio 14.8 (10-20) Glucose 97 (70-99(Fasting)) mg/dl Calcium 9.6 (8.6-10.3) mg/dl Administered Medications Discontinued Medications Acetaminophen (Acetaminophen 500 Mg Tab) 1,000 mg PO NOW STA Stop: 03/29/24 15:21 Last Admin: 03/29/24 15:52 Dose: 1,000 mg Documented By: BELINDA Piperacillin Sod/Tazobactam Sod (Zosyn) 4.5 gm in 100 mls @ 200 mls/hr IV NOW ONE Stop: 03/29/24 15:30 Last Admin: 03/29/24 15:53 Dose: 200 mls/hr Documented By: BELINDA Imaging Data Attestation: I personally reviewed and interpreted this imaging study as follows: Radiologist's Impression: Soft Tissue Ultrasound 03/29/24 12:12 US soft tissue perineum CLINICAL HISTORY: attention left perirectal area for abscess TECHNIQUE: Real-time grayscale sonographic images of the perineum were obtained. Comparison: Comparison is made to soft tissue ultrasound 03/27/2024 FINDINGS/IMPRESSION: A complex area in the left perineum measures 6.6 x 5.8 x 6.9 cm. It appears elongated compared to the prior exam, the area of previous packing is seen with shadowing, likely from subcutaneous gas, and the previously noted fluid collection is present as a lobulation measuring 2.9 x 2.4 x 3.5 cm. Overall findings are compatible with persistent and likely enlarging abscess. ACT 112: Negative or not required by law. Electronically signed by: Edwin Ferguson M.D. 03/29/2024 1:41 PM Discharge Plan Visit Data Chief Complaint: Wound Stated Complaint: RECTAL ABCESS ONGOING ED Provider: Deondre Hong ED Midlevel Provider: Dorothea Singh Discharge Problem: Perineal abscess Patient Disposition: Still a Patient Forms Stand Alone Forms: [facility] Prescriptions Prescriptions: No Action PNV cmb#95-ferrous fumarate-FA [] 28 mg iron- 800 mcg Tablet 1 tab PO DAILY amoxicillin-pot clavulanate 875-125 mg tablet 1 tab PO BID Qty: 14 0RF Rx Instructions: STARTED 03/27/24 Referrals Referrals: Lars Joy DO [Primary Care Provider] -
[2024-03-29 12:55] LABS: Basophils # (auto) 0.03 K/uL (0.00-0.20); Basophils % (auto) 0.2 %; Eosinophils # (auto) 0.04 K/uL (0.00-0.50); Eosinophils % (auto) 0.3 %; Hematocrit (blood only) 36.2 % (37.0-47.0); Immature Granulocytes # (auto) 0.06 K/uL (0.01-0.20); Immature Granulocytes % (auto) 0.5 %; Lymphocytes # (auto) 2.03 K/uL (1.20-3.40); Lymphocytes % (auto) 15.8 %; Mean Corpuscular Hemoglobin 27.4 pg (25.0-34.0); Mean Corpuscular Hgb Conc 33.1 g/dL (32.0-36.0); Mean Corpuscular Volume 82.6 fL (80.0-100.0); Monocytes # (auto) 0.75 K/uL (0.11-0.59); Monocytes % (auto) 5.8 %; Neutrophils # (auto) 9.93 K/uL (1.40-6.50); Neutrophils % (auto) 77.4 %; Platelet Count 334 K/uL (130-400); RDW Coefficient of Variation 12.1 % (11.5-14.5); RDW Standard Deviation 36.8 fL (36.4-46.3); Red Blood Count 4.38 M/uL (4.20-5.40); White Blood Count 12.84 K/ul (4.8-10.8)
[2024-03-29 13:14] LABS: BUN Creatinine Ratio 14.8 (10-20); Calcium 9.6 mg/dl (8.6-10.3); Creatinine Clr Calc Pharmacy 141.2 ml/min; Est GFR (African American) 147.1 ml/min; Est GFR (Non-African American) 126.9 ml/min; Potassium 3.4 mmol/L (3.5-5.1)
--- NOTE | 2024-03-29 13:42 | Ultrasound Report ---
US soft tissue perineum CLINICAL HISTORY: attention left perirectal area for abscess TECHNIQUE: Real-time grayscale sonographic images of the perineum were obtained. Comparison: Comparison is made to soft tissue ultrasound 03/27/2024 FINDINGS/IMPRESSION: A complex area in the left perineum measures 6.6 x 5.8 x 6.9 cm. It appears juanito gated compared to the prior exam, the area of previous packing is seen with shadowing, likely from ni bcutaneous gas, and the previously noted fluid collection is present as a lobulation measuring 2.9 x 2.4 x 3.5 cm. Overall findings are compatible with persistent and likely enlarging abscess. ACT 112: Negative or not required by law. Electronically signed by: Edwin Ferguson M.D. 03/29/2024 1:41 PM
--- NOTE | 2024-03-29 15:07 | Surgery Consultation ---
Date of Consultation March 29, 2024 Assessment & Plan (1) Perineal abscess: Patient is a pleasant 23 year old female with left perineal abscess that was drained and packed on 03/27/24 in the ER and sent home on oral antibiotics (Augmentin). The patient reports that her pain has been getting worse over the past few days so she came back in. She reports some drainage from area, bloody in nature with feelings of fullness in her vagina and rectal area, rates pain 7/10. She denies bloody vaginal discharge. Denies fever or chills. States that she is 5 weeks . She had an Ultrasound of perineal area that is reading a complex area in the left perineum that measures 6.6 x 5.8x 6.9 cm which has increased in size from two days ago. on exam patient is in no acute distress, lateral inferior to the left Labia post incisional area noted, no drainage, firm indurated area, warm TTP, and erythematous, incisional area probed with soft Qtip in an attempt to facilitate abscess drainage however was unsuccessful at expressing, and stopped for patient comfort. Imagining discussed with the patient and recommending getting MRI to further evaluate abscess given possible hx of Crohn disease. If tracking to the rectum or colon is noted the patient may need to see a colorectal surgeon. Culture results from 03/27/24 I+D resulted as Group B strep. Admit to medicine Recommending MRI NPO IV antibiotics (were started in ER zosyn) IV fluids IV analgesics PRN Admit to medicine Supervising Physician Co-Signing Physician Notes I have discussed this case with the surgical PA and I agree with this plan History of Present Illness Reason for Consultation: perirectal abscess Requesting Physician: Radha Rod History of Present Illness Patient is a pleasant 23 year old female with PMH, constipation, depression, SBO (with ileocecal valve stenosis, questionable Crohn disease 2021), and left perineal abscess that was drained and packed on 03/27/24 in the ER and sent home on oral antibiotics. The patient reports that her pain has been getting worse over the past few days so she came back in. She reports some drainage from area, bloody in nature with feelings of fullness in her vagina and rectal area, rates pain 7/10. She denies bloody vaginal discharge. Denies fever or chills. States that she is 5 weeks . She had an Ultrasound of perineal area that is reading a complex area in the left perineum that measures 6.6 x 5.8x 6.9 cm which has increased in size from two days ago. Allergies Allergy/AdvReac Type Severity Reaction Status Date / Time No Known Allergies Allergy Verified 03/30/24 09:12 Home Medications Medication Instructions Recorded Confirmed Type amoxicillin 875 mg-potassium 1 tab PO BID #14 tabs 03/27/24 03/29/24 Rx clavulanate 125 mg tablet vit no.95-ferrous 1 tab PO DAILY 03/27/24 03/29/24 History fumarate 28 mg-folic acid 800 mcg tablet () Patient History Medical History Acne Depression Vitamin D deficiency Granulation tissue History of varicella vaccination Asthma Surgical History History of adenoidectomy S/P tonsillectomy S/P wisdom tooth extraction Family History Grandmother (Maternal) Endometriosis great grandmother Dyslipidemia Mother Multiple gestation Other No significant family history Denies family history of Ovarian cancer Prostate cancer Myocardial infarction Breast cancer Colorectal cancer Social History Smoking Status: Never smoker Second Hand Exposure: No; Do You Dip or Chew Tobacco: No; Tobacco Cessation Education Requested by Patient: No Hx Alcohol Use: No Hx Substance Use: No Preferred Language: Kinyarwanda Communication Ability: Effective Visual Impairment: No Limitations Hearing Ability: Normal Air Analyst Required: No Beliefs That Will Affect Care: None marital status: Current Living Situation: Spouse current occupational status: other 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 How many Children do You have: 1 Other Information That Helps Us Care for You: No Feels Safe at Home: Yes Safety Concerns: Feels Safe At This Time Childhood Exposure to Second-Hand Smoke: No Diet: vegetarian caffeine: Yes (coffee) Dental Care, Regularly: Yes Physical Activity Frequency: 3-4 Times per Week Seatbelt Use: always Sunscreen Use: Yes Do you think of yourself as: straight/heterosexual Assistive Devices: None Review of Systems Constitutional: no fever and no chills Respiratory: no dyspnea Cardiovascular: no chest pain Gastrointestinal: + constipation; no abdominal pain, no na usea and no vomiting Physical Exam Physical Exam: alert oriented Constitutional: well developed and cooperative; no acute distress Respiratory: normal respiratory effort and able to speak in complete sentences; no respiratory distress Cardiovascular: Rate/Rhythm: + tachycardic Gastrointestinal (Abdomen): Rectal Exam: no hemorrhoids Genitourinary: + external tenderness, + external swelli ng and + external erythema lateral inferior to the left Labia post incisional area noted, no drainage, firm indurated area, warm TTP, and erythematous Results & Data Vital Signs (Past 12 Hours) Vital Signs Temp Pulse Resp BP Pulse Ox O2 Del Method 03/29/24 11:34 97.7 F 123 H 20 124/78 97 Room Air Diagnostic Findings [place], [place] [phone] Ultrasound Report Patient: DEREK ANDREWS Admit Date: 03/29/24 MR#: [id number] Address1: [address] [place] [address] Acct ID:[id number] Address2: Date: [address] [facility] Zip: [place] [address] Age: 23 Location: ED Sex: F Room/Bed: Att Phy: Diagnosis: RECTAL ABCESS ONGOING Faby Phy: Lars Joy DO Service Date: 03/29/24 [facility] Phy: Interpreting Phy: Edwin Ferguson MDAdmit Phy: Ordering Phy: Radha Rod PA cc: ~ US soft tissue perineum CLINICAL HISTORY: attention left perirectal area for abscess TECHNIQUE: Real-time grayscale sonographic images of the perineum were obtained. Comparison: Comparison is made to soft tissue ultrasound 03/27/2024 FINDINGS/IMPRESSION: A complex area in the left perineum measures 6.6 x 5.8 x 6.9 cm. It appears elongated compared to the prior exam, the area of previous packing is seen with shadowing, likely from subcutaneous gas, and the previously noted fluid collection is present as a lobulation measuring 2.9 x 2.4 x 3.5 cm. Overall findings are compatible with persistent and likely enlarging abscess. ACT 112: Negative or not required by law. Electronically signed by: Edwin Ferguson M.D. 03/29/2024 1:41 PM Dictated: 03/29/24 1336 Transcribed: 03/29/24 1336 Results CBC w Diff Results: RBC 4.24 M/uL (4.20-5.40) 03/30/24 WBC 12.48 K/ul (4.8-10.8) H 03/30/24 Hgb 11.9 g/dl (12.0-16.0) L 03/30/24 Hct 35.1 % (37.0-47.0) L 03/30/24 MCV 82.8 fL (80.0-100.0) 03/30/24 MCH 28.1 pg (25.0-34.0) 03/30/24 MCHC 33.9 g/dL (32.0-36.0) 03/30/24 RDW Standard Deviation 36.5 fL (36.4-46.3) 03/30/24 RDW Coefficient of Variation 12.0 % (11.5-14.5) 03/30/24 Plt Count 318 K/uL (130-400) 03/30/24 MPV 9.2 fL (9.4-12.4) L 03/30/24 Neutrophils (%) (Auto) 77.4 % 03/29/24 Lymphocytes (%) (Auto) 15.8 % 03/29/24 Monocytes # (Auto) 0.75 K/uL (0.11-0.59) H 03/29/24 Eosinophils # (Auto) 0.04 K/uL (0.00-0.50) 03/29/24 Immature Granulocyte % (Auto) 0.5 % 03/29/24 Neutrophils # (Auto) 9.93 K/uL (1.40-6.50) H 03/29/24 Lymphocytes # (Auto) 2.03 K/uL (1.20-3.40) 03/29/24 Monocytes # (Auto) 0.75 K/uL (0.11-0.59) H 03/29/24 Eosinophils # (Auto) 0.04 K/uL (0.00-0.50) 03/29/24 Basophils # (Auto) 0.03 K/uL (0.00-0.20) 03/29/24 Immature Granulocyte # (Auto) 0.06 K/uL (0.01-0.20) 4 PG Care Time/CCT Total # of Minutes Spent Total Time Spent with Patient: Total time spent is greater than 50% in coordination of care (as documented) at patient's floor/unit and/or counseling patient: Coding Level of Care Code 92907 OP VST NEW MOD 45 MIN Diagnoses Perineal abscess L02.215
[2024-03-29] MEDS: ACETAMINOPHEN 500 MG TAB PO STA (15:52)
[2024-03-29] MEDS: PIPERACILLIN/TAZOBACTAM 4.5 GM/100 ML BAG IV ONE (15:53)
--- NOTE | 2024-03-29 18:53 | Magnetic Resonance Report ---
MR pelvis wo con CLINICAL HISTORY: eval left perineal/perirectal abscess TECHNIQUE: Multiplanar multisequence images were obtained of the pelvis with and without the administ ration of contrast. COMPARISON: None available at the time of this dictation. FINDINGS: Bowel: Complex perirectal fluid collection contains a left-sided component measuring 18 x 25 mm which extends anteriorly into the right of the rectum. Surrounding soft tissue stranding is seen. The alysa jam of the bowel is unremarkable. Lymph nodes: Unremarkable. Bladder: Limited evaluation due to underdistention. Reproductive organs: There is uterus with suggestion of tiny uterine fibroids. Vessels: Unremarkable. Abdominal wall: Unremarkable. Bones: Degenerative changes in the visualized spine. IMPRESSION: Findings are compatible with a complex perirectal abscess with measurements as above. Of note, it ext ends around the rectum and the complex appearance in the prior ultrasound may in part represent rectu m adjacent to the primary component of the abscess. ACT 112: Negative or not required by law. Electronically signed by: Edwin Ferguson M.D. 03/29/2024 6:51 PM
--- NOTE | 2024-03-29 19:28 | History & Physical Report ---
Date of Service March 29, 2024 Assessment & Plan (1) Perineal abscess: Plan: -Patient was seen in the ED and had an I&D 2 days prior, was on Augmentin. She continued to have pain and no improvement. -CBC with a slight leukocytosis of 12. BMP unremarkable, sodium 134 and potassium of 3.4. Will monitor with daily labs. -Ultrasound showing elongated complex enlarging abscess in the left perineum -MRI findings of a complex perirectal abscess -Cultures resulted from 03/27 showed group B strep. -Surgery consulted and attempt to facilitate drainage bedside was unsuccessful. -Surgery recommends admitting to medicine, n.p.o., IV antibiotics, IV fluids, IV analgesics as needed. -Surgical intervention tomorrow. -Started on Zosyn in the ED after talks with pharmacy. Will continue with Zosyn at this time. -N.p.o., Tylenol as needed, LR at 80 mL an hour. (2) First trimester : Plan: -No vaginal bleeding, abdominal pain, nausea, vomiting. -Second , uneventful first -Due to n.p.o. status holding but would recommend restarting after surgery Plan Fluids: LR at 80 mL an hour Nutrition: N.p.o. Code status: Full code DVT ppx: None, reevaluate if patient requires extended hospital stay Dispo: med/surg History of Present Illness Chief Complaint: Perineal abscess Primary Care Provider: Lars Joy DO Patient is a 23-year-old female who is 5 weeks who returns to the hospital for left rectal pain. Patient was seen in the ED 2 days ago and had an I&D done for a perineal abscess and given Augmentin. Patient went home and continued to have pain. She has also had minimal drainage from the area. Continues to feel a hard tender area in the left rectal region. She has been taking Tylenol and applying ice to the area. Packing still in place. She tried to follow-up with [employer] but was unable to get in quickly and told to come to the emergency room. She denies any fever, chills, abdominal pain, rectal bleeding, vaginal bleeding, nausea, vomiting. No issues with bowel movements or urination. Allergies Allergy/AdvReac Type Severity Reaction Status Date / Time No Known Allergies Allergy Verified 03/29/24 15:49 Home Medications Medication Instructions Recorded Confirmed Type amoxicillin 875 mg-potassium 1 tab PO BID #14 tabs 03/27/24 03/29/24 Rx clavulanate 125 mg tablet vit no.95-ferrous 1 tab PO DAILY 03/27/24 03/29/24 History fumarate 28 mg-folic acid 800 mcg tablet () Past Med/Surg History Problem List First trimester (Acute) Perineal abscess (Acute) Medical History Acne Depression Vitamin D deficiency Granulation tissue History of varicella vaccination Asthma Surgical History History of adenoidectomy S/P tonsillectomy S/P wisdom tooth extraction Family History Grandmother (Maternal) Endometriosis great grandmother Dyslipidemia Mother Multiple gestation Other No significant family history Denies family history of Ovarian cancer Prostate cancer Myocardial infarction Breast cancer Colorectal cancer Social History Smoking Status: Never smoker Second Hand Exposure: No; Do You Dip or Chew Tobacco: No; Tobacco Cessation Education Requested by Patient: No Hx Alcohol Use: No Hx Substance Use: No Preferred Language: Irish Communication Ability: Effective Visual Impairment: No Limitations Hearing Ability: Normal Print Buyer Required: No Beliefs That Will Affect Care: None marital status: Current Living Situation: Spouse current occupational status: other 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 How many Children do You have: 1 Other Information That Helps Us Care for You: No Feels Safe at Home: Yes Safety Concerns: Feels Safe At This Time Childhood Exposure to Second-Hand Smoke: No Diet: vegetarian caffeine: Yes (coffee) Dental Care, Regularly: Yes Physical Activity Frequency: 3-4 Times per Week Seatbelt Use: always Sunscreen Use: Yes Do you think of yourself as: straight/heterosexual Assistive Devices: None Review of Systems Review of Systems: All systems reviewed & are unremarkable except as noted in Subjective Physical Exam Physical Exam: Constitutional: well-appearing, no acute distress HEENT: NCAT, no conjunctival injection CV: regular rhythm, no murmur appreciated, extremities well-perfused, no LE edema Resp: CTABL, no wheezes/rales/rhonchi appreciated, no increased work of breathing GI: soft, nondistended, nontender, BS normoactive : Declined, refer to surgical physical exam Skin: warm, dry, no rash appreciated Neuro: alert, oriented, no focal neurologic deficit appreciated Results & Data Results & Data Vital Signs (Past 12 Hours) Vital Signs Temp Pulse Pulse Resp BP BP Pulse Ox 03/29/24 18:47 95 H 18 122/67 95 03/29/24 15:57 107 H 18 118/73 99 03/29/24 11:34 36.5 C 123 H 20 124/78 97 O2 Del Method 03/29/24 18:47 Room Air 03/29/24 15:57 Room Air 03/29/24 11:34 Room Air Laboratory Results Laboratory Results WBC 12.84 K/ul (4.8-10.8) H 03/29/24 12:35 RBC 4.38 M/uL (4.20-5.40) 03/29/24 12:35 Hgb 12.0 g/dl (12.0-16.0) 03/29/24 12:35 Hct 36.2 % (37.0-47.0) L 03/29/24 12:35 MCV 82.6 fL (80.0-100.0) 03/29/24 12:35 MCH 27.4 pg (25.0-34.0) 03/29/24 12:35 MCHC 33.1 g/dL (32.0-36.0) 03/29/24 12:35 RDW Std Deviation 36.8 fL (36.4-46.3) 03/29/24 12:35 RDW Coeff of Alison 12.1 % (11.5-14.5) 03/29/24 12:35 Plt Count 334 K/uL (130-400) 03/29/24 12:35 MPV 9.0 fL (9.4-12.4) L 03/29/24 12:35 Immature Gran % (Auto) 0.5 % 03/29/24 12:35 Neut % (Auto) 77.4 % 03/29/24 12:35 Lymph % (Auto) 15.8 % 03/29/24 12:35 [place] % (Auto) 5.8 % 03/29/24 12:35 Eos % (Auto) 0.3 % 03/29/24 12:35 Baso % (Auto) 0.2 % 03/29/24 12:35 Neut # (Auto) 9.93 K/uL (1.40-6.50) H 03/29/24 12:35 Lymph # (Auto) 2.03 K/uL (1.20-3.40) 03/29/24 12:35 [place] # (Auto) 0.75 K/uL (0.11-0.59) H 03/29/24 12:35 Eos # (Auto) 0.04 K/uL (0.00-0.50) 03/29/24 12:35 Baso # (Auto) 0.03 K/uL (0.00-0.20) 03/29/24 12:35 Immature Gran # (Auto) 0.06 K/uL (0.01-0.20) 03/29/24 12:35 Sodium 134 mmol/L (136-145) L 03/29/24 12:35 Potassium 3.4 mmol/L (3.5-5.1) L 03/29/24 12:35 Chloride 103 mmol/L (98-107) 03/29/24 12:35 Carbon Dioxide 24 mmol/L (21-32) 03/29/24 12:35 Anion Gap 7 (3-11) 03/29/24 12:35 BUN 9 mg/dl (6-23) 03/29/24 12:35 Creatinine 0.61 mg/dl (0.6-1.2) 03/29/24 12:35 Est Cr Clr Drug Dosing 141.2 ml/min 03/29/24 12:35 Est GFR ( Amer) 147.1 ml/min 03/29/24 12:35 Est GFR (Non-Af Amer) 126.9 ml/min 03/29/24 12:35 BUN/Creatinine Ratio 14.8 (10-20) 03/29/24 12:35 Glucose 97 mg/dl (70-99(Fasting)) 03/29/24 12:35 Calcium 9.6 mg/dl (8.6-10.3) 03/29/24 12:35 Impressions Soft Tissue Ultrasound 03/29/24 12:12 US soft tissue perineum CLINICAL HISTORY: attention left perirectal area for abscess TECHNIQUE: Real-time grayscale sonographic images of the perineum were obtained. Comparison: Comparison is made to soft tissue ultrasound 03/27/2024 FINDINGS/IMPRESSION: A complex area in the left perineum measures 6.6 x 5.8 x 6.9 cm. It appears elongated compared to the prior exam, the area of previous packing is seen with shadowing, likely from subcutaneous gas, and the previously noted fluid collection is present as a lobulation measuring 2.9 x 2.4 x 3.5 cm. Overall findings are compatible with persistent and likely enlarging abscess. ACT 112: Negative or not required by law. Electronically signed by: Edwin Ferguson M.D. 03/29/2024 1:41 PM Pelvis MRI 03/29/24 15:01 MR pelvis wo con CLINICAL HISTORY: eval left perineal/perirectal abscess TECHNIQUE: Multiplanar multisequence images were obtained of the pelvis with and without the administration of contrast. COMPARISON: None available at the time of this dictation. FINDINGS: Bowel: Complex perirectal fluid collection contains a left-sided component measuring 18 x 25 mm which extends anteriorly into the right of the rectum. S urrounding soft tissue stranding is seen. The remainder of the bowel is unremarkable. Lymph nodes: Unremarkable. Bladder: Limited evaluation due to underdistention. Reproductive organs: There is uterus with suggestion of tiny uterine fibroids. Vessels: Unremarkable. Abdominal wall: Unremarkable. Bones: Degenerative changes in the visualized spine. IMPRESSION: Findings are compatible with a complex perirectal abscess with measurements as above. Of note, it extends around the rectum and the complex appearance in the prior ultrasound may in part represent rectum adjacent to the primary component of the abscess. ACT 112: Negative or not required by law. Electronically signed by: Edwin Ferguson M.D. 03/29/2024 6:51 PM Supervising Physician Co-Signing Physician Notes Patient seen and examined, chart reviewed, case discussed with Dr. Weston and I agree with the assessment and plan as above. In brief, patient is a 23yo female 5 weeks presenting with perirectal abscess. Patient was seen in the ER two days ago and had an I&D performed. She has been compliant with Augmenting. She returns this evening with worsening symptoms. On exam she is afebrile, HD stable and non-toxic in appearance Skin - no rash HEENT - MMM, Neck supple Heart - +S1/S2, regular, no m/r/g Lungs - CTA, no rales/rhonchi/wheezes Abd - +BS, soft, NT/ND Ext - warm, well perfused Firm, tender area left perirectal area, no crepitus or bullae, erythema, no drainage noted Labs and images reviewed. WBC=12.84 MRI findings as above Assessment/Plan 23yo female at 5 weeks presenting with perirectal abscess Afebrile, non-toxic in appearance -Continue Zosyn -General Surgery assistance appreciated - plan for OR in AM -Remainder as above
--- NOTE | 2024-03-29 20:35 | Emergency Department Note ---
ED Visit Note I was asked by my colleague Sunitha Rod PA-C to assume care of this patient until the pelvic MRI is resulted. MRI shows, a complex perirectal abscess with measurements as above. Of note, it extends around the rectum and the complex appearance in the prior ultrasound may in part represent rectum adjacent to the primary component of the abscess. I spoke with Dr. Brianna Madera from general surgery, who recommended admission to medicine with surgical intervention tomorrow. The patient was notified of the results, and the plan of care. Case management was contacted to facilitate admission, Dr. Vika Morrison from the [facility] accepted the patient under her care, please refer to her documentation for further patient workup and treatment. .
[2024-03-29] MEDS: LACTATED RINGER'S 1,000 ML IV SCH (22:44)
[2024-03-29] MEDS: ACETAMINOPHEN 1,000 MG/100 ML VIAL IV PRN (22:50)
[2024-03-29] MEDS: PIPERACILLIN/TAZOBACTAM 4.5 GM in DEXTROSE 5% MINI-B 100 ML IV SCH (23:45)
--- NOTE | 2024-03-30 01:28 | Billing Data ---
Date of Service March 29, 2024 Coding Level of Care Code 16131 INT INP/OBS CARE
[2024-03-30 06:46] LABS: Hematocrit (blood only) 35.1 % (37.0-47.0); Hemoglobin 11.9 g/dl (12.0-16.0); Mean Corpuscular Hemoglobin 28.1 pg (25.0-34.0); Mean Corpuscular Hgb Conc 33.9 g/dL (32.0-36.0); Mean Corpuscular Volume 82.8 fL (80.0-100.0); Mean Platelet Volume 9.2 fL (9.4-12.4); Platelet Count 318 K/uL (130-400); RDW Standard Deviation 36.5 fL (36.4-46.3); Red Blood Count 4.24 M/uL (4.20-5.40); White Blood Count 12.48 K/ul (4.8-10.8)
[2024-03-30 06:59] LABS: Anion Gap 8 (3-11); BUN Creatinine Ratio 19.6 (10-20); Blood Urea Nitrogen 11 mg/dl (6-23); Calcium 9.6 mg/dl (8.6-10.3); Carbon Dioxide 24 mmol/L (21-32); Chloride 103 mmol/L (98-107); Creatinine Clr Calc Pharmacy 153.8 ml/min; Est GFR (African American) > 150.0 ml/min; Est GFR (Non-African American) 130.5 ml/min; Glucose 95 mg/dl (70-99(Fasting)); Potassium 3.4 mmol/L (3.5-5.1); Sodium 135 mmol/L (136-145)
--- NOTE | 2024-03-30 07:11 | Hospitalist Progress Note ---
Date of Service March 30, 2024 Assessment & Plan (1) Perineal abscess: Plan: Vero is a 23F (currently EGA 5 weeks) w/ PMH of bowel obstructions & ileocecal bowel stricture (follows w/ GI) who presented to the ER for worsening perirectal pain and was admitted for surgical management of a perineal abscess. - Patient s/p I&D of perineal abscess 03/27, now s/p Surgical Drainage 03/30 Cultures resulted from 03/27 showed Group B strep. - Mild leukocytosis on presentation, labs otherwise stable - Ultrasound showing elongated complex enlarging abscess in the left perineum - MRI findings of a complex perirectal abscess - Diet advanced by surgical team - Continue Zosyn, LR @ 80 mL/hr, and analgesia PRN (2) First trimester : Plan: - Patient , currently EGA 5 weeks - No vaginal bleeding, abdominal pain, nausea, vomiting. - Diet restarted after surgery, restart vitamin Plan Fluids: LR at 80 mL an hour Nutrition: Regular, vegetarian Code status: Full code DVT ppx: Ambulation Dispo: med/surg Admission and Anticipated Discharge Date Admission Date: March 29, 2024 Supervising Physician Co-Signing Physician Notes I personally examined the patient and verified all cottrell points of history and exam, discussed case, and agree with decision making with Dr Tucker Patient seen postopnotes that she is feeling much better. Pain under good control. Vitals noted, in general she is awake and alert pleasant no distress. HEENT normocephalic atraumatic mucous membranes moist. Breathing unlabored no accessory muscle use good effort. Skin without rashes pallor or icterus. Perirectal abscessnow status post surgical drainagefeeling better. Ongoing management per surgical team, input greatly appreciated. Longitudinally as an outpatientongoing surveillance (symptoms, etc.) to follow for any evidence of inflammatory bowel disease (did have biopsy that was negative about 2 years ago, small bowel enterography appears to have been recommended, but if it was done it does not appear to be in our system, obviously there is no urgency to this and would definitely wait until after , and at the same time if she is having no further symptoms, it is quite possible that this is just a perirectal abscess not anything related to inflammatory bowel disease, etc. otherwise as above Subjective Patient noting mild epigastric pain this morning prior to surgery. No lower abdominal pain, cramping, or vaginal discharge/bleeding. Patient denies fevers and chills. No nausea or emesis. Notes she feels constipated. Surgery scheduled this morning for perineal abscess drainage. Physical Exam Physical Exam: Constitutional: well-appearing, no acute distress HEENT: NCAT, no conjunctival injection CV: RRR, normal S1/S2, no MRG Resp: non-labored, CTAB GI: soft, non-distended, mild epigastric TTP, now lower abdominal TTP, no masses : Deferred Skin: warm, dry, no rash appreciated Neuro: AO x 3 Results & Data Results & Data Vital Signs (Past 12 Hours) Vital Signs Temp Pulse Resp BP Pulse Ox O2 Del Method 03/29/24 22:16 37.2 C 85 18 105/69 98 Room Air Resident Activity Tracking Resident Involvement: Resident Care Provided Care Provided: Adult Hospital Medicine
--- NOTE | 2024-03-30 09:29 | History & Physical Bridge Note ---
Date of Service March 30, 2024 History & Physical Bridge Note I have examined the patient, reviewed the History & Physical and in the interval since the performance of the History & Physical I have noted the following changes of clinical significance: no changes noted The patient will have I&D of a perianal abscess this am. The details of the procedure have been explained to her including the risks and benefits. Consent has been obtained and is on the chart.
--- NOTE | 2024-03-30 09:40 | Anesthesiology Consultation ---
Date of Service March 30, 2024 Assessment & Plan Chart Review Chart Review: Acceptable Risk for Surgery and Patient NOT seen in Pre Admission Testing ASA ASA2 Proposed Anesthesia Anesthesia Type: General Risk / Benefits Reviewed With: PT / POA / Parent / Guardian, Accepts Plan and Informed Consent Obtained History Surgery Operation Date: 03/30/24 08:20 Proposed Procedures p Drainage Perirectal Abscess, Rectal Exam - Mu Posadas DO Height/Weight Height: 5 ft 9 in Weight: 62.9 kg Allergies Allergy/AdvReac Type Severity Reaction Status Date / Time No Known Allergies Allergy Verified 03/30/24 09:12 Medications Home Medications Medication Instructions Recorded Confirmed Last Taken amoxicillin 875 mg-potassium 1 tab PO BID #14 tabs 03/27/24 03/29/24 03/29/24 08:00 clavulanate 125 mg tablet vit no.95-ferrous 1 tab PO DAILY 03/27/24 03/29/24 03/29/24 fumarate 28 mg-folic acid 800 mcg tablet () Active Medications Generic Name Dose Route Start Last Admin Trade Name Freq PRN Reason Stop Dose Admin Piperacillin Sod/Tazobactam 100 mls @ 25 mls/hr 03/29/24 23:00 03/30/24 06:09 Sod 4.5 gm/ Dextrose IV 04/05/24 22:13 25 mls/hr Q8H KEEGAN Administration Protocol Acetaminophen 1,000 mg in 100 mls @ 400 mls/hr 03/29/24 22:14 03/29/24 23:05 Ofirmev IV 04/01/24 22:13 Infused Q8H PRN Infusion Pain Lactated Ringer's 1,000 mls @ 80 mls/hr 03/29/24 22:14 03/29/24 22:44 Lr IV 04/28/24 22:13 80 mls/hr .[id number] KEEGAN Administration NPO Date Last Intake of Fluids: 03/29/24 Time Last Intake of Fluids: 22:00 Date Last Intake of Solids: 03/29/24 Time Last Intake of Solids: 21:00 Past Medical History Medical History Acne Depression Vitamin D deficiency Granulation tissue History of varicella vaccination Asthma Exercise / Class Metabolic Activity II 4-5 Yardwork/Stairs/Walk up hill Past Family History Family History Grandmother (Maternal) Endometriosis great grandmother Dyslipidemia Mother Multiple gestation Other No significant family history Denies family history of Ovarian cancer Prostate cancer Myocardial infarction Breast cancer Colorectal cancer Past Surgical History Surgical History History of adenoidectomy S/P tonsillectomy S/P wisdom tooth extraction Past Anesthesia History No Hx of Anesthesia Complications and No Family Hx of Anesthesia Complications History of PONV No Hx of PONV and No Hx of Motion Sickness Social History Smoking Status: Never smoker Do You Dip or Chew Tobacco: No Hx Alcohol Use: No Hx Substance Use: No substance use type: does not use Review of Systems denies fever/cough/ colds/ chest pain/ SOB/ KARYN denies KARYN Physical Exam Vital Signs Last Vital Signs Temp 37.4 C 03/30/24 09:13 Pulse 96 H 03/30/24 09:13 Resp 18 03/30/24 09:13 BP 121/75 03/30/24 09:13 Pulse Ox 99 03/30/24 09:13 O2 Del Method Room Air 03/30/24 09:13 ENMT Mouth: no TMJ abnormality and no dentition abnormality Thyromental Distance: > or= 3.5 Finger Breadths Mallampati Class: II Neck neck extension not limited Respiratory normal respiratory effort; no respiratory distress Auscultation: lungs clear to auscultation bilaterally Cardiovascular Rate/Rhythm: regular rate and regular rhythm Neurologic moves all extremities Psychiatric Orientation: alert and oriented x 3 Testing Laboratory Results 03/30/24 06:06 03/30/24 06:06
[2024-03-30] MEDS ORDERED: PROPOFOL IV EMULSION 10 MG/ML 20 ML VIAL IV ONE ×2 (10:17→12:10)
[2024-03-30] MEDS ORDERED: ATROPINE SULFATE 0.1 MG/ML 10ML SYR IV PRN (10:29)
[2024-03-30] MEDS ORDERED: ePHEDrine sulfate 50 MG/ML AMP IV PRN (10:29)
[2024-03-30] MEDS ORDERED: ONDANSETRON INJ 2 MG/ML 2 ML VIAL IV PRN (10:29)
[2024-03-30] MEDS ORDERED: fentaNYL citrate PF 100 MCG/2 ML VIAL IV PRN (10:29)
[2024-03-30] MEDS ORDERED: HYDROmorphone INJ 1 MG/ML SYRINGE IV PRN (10:29)
[2024-03-30] MEDS: BUPIVACAINE 0.5 % 5 MG/1 ML MPF 30ML VIAL ONE (10:35)
--- NOTE | 2024-03-30 10:49 | Operative Report ---
PG Post Operative Report Pre & Post Diagnosis Operation Date: 03/30/24 08:20 Pre-Op Diagnosis: PERINEAL ABSCESS Post-Op Diagnosis: PERINEAL ABSCESS I identified the patient and participated in the time-out.: Yes Procedure Operation Date: 03/30/24 08:20 Actual Procedures p Drainage Perirectal Abscess, Rectal Exam(Not Applicable) - Mu Madera DO Surgeon Mu Posadas DO Windows Server Support Technician GLEN Jones Estimated Blood Loss 7 Findings See Below Copious purulent fluid at the left anterior perianal/perirectal space Culture swab obtained and sent for testing Specimens None Anesthesia Type Spinal Complications None Description of Procedure Patient was brought back to the operating room and placed on the operating room table in lithotomy position. She was connected to cardiac and oxygen monitoring and supplemental O2 was provided. The perineal area was prepped and draped in typical sterile fashion and a timeout was conducted. An area of heavy induration was noted at the left anterior perianal space of the gluteal fold. At this location there was also an incision from her previous I&D. A hemostat was used to gently probed this area and immediately upon breaking a bands of soft tissue, and abscess cavity was encountered expressing copious amounts of purulent drainage. A culture swab was used to collect the fluid for further testing. The area was gently probed with a hemostat to reach the base of the cavity. The abscess cavity felt to be roughly 3 cm deep. Local anesthetic was injected and the previous incision was extended and forms into a cruciate incision. The area was irrigated using saline solution. Additional local anesthetic was injected. Bleeding of the superficial soft tissues was controlled using cautery. The abscess cavity was then packed with half-inch plain packing. The incision site was then dressed with dry, sterile gauze that was covered with an ABD and secured in place with tape. The the patient tolerated the procedure well. She was taken out of lithotomy and transferred to recovery in stable condition. I attest to the content of the Intraoperative Record and any orders documented therein. Any exceptions are noted below.
--- NOTE | 2024-03-30 11:54 | Anesthesiology Progress Note ---
Date of Service March 30, 2024 Anesthesia Post Procedure Vital Signs Vital Signs: Temp Pulse Pulse Resp BP BP Pulse Ox 03/30/24 11:45 76 13 108/67 99 03/30/24 11:35 37.4 C 78 14 121/66 100 03/30/24 11:25 69 13 115/67 100 03/30/24 11:15 68 13 115/63 100 03/30/24 11:05 80 18 117/75 100 03/30/24 10:55 82 14 95/76 L 100 03/30/24 10:49 36.1 C L 83 21 95/75 L 100 03/30/24 09:13 37.4 C 96 H 18 121/75 99 03/30/24 09:01 97 H 112/70 03/30/24 07:17 37.3 C 96 H 16 98/64 L 98 03/29/24 22:16 37.2 C 85 18 105/69 98 03/29/24 18:47 95 H 18 122/67 95 03/29/24 15:57 107 H 18 118/73 99 O2 Del Method 03/30/24 11:45 Room Air 03/30/24 11:35 Room Air 03/30/24 11:25 Room Air 03/30/24 11:15 Room Air 03/30/24 11:05 Room Air 03/30/24 10:55 Room Air 03/30/24 10:49 Room Air 03/30/24 09:13 Room Air 03/30/24 09:01 03/30/24 07:17 Room Air 03/29/24 22:16 Room Air 03/29/24 18:47 Room Air 03/29/24 15:57 Room Air Transfer of Care Handoff Completed per policy Notes Mental Status: alert / awake / arousable and participated in evaluation Patient Amnestic to Procedure: Yes Nausea / Vomiting: adequately controlled Pain: adequately controlled Airway Patency, RR, SpO2: stable & adequate BP & HR: stable & adequate Hydration State: stable & adequate Anesthetic Complications: no major complications apparent and Pt Satisfied with anesthetic care
[2024-03-30] MEDS: ACETAMINOPHEN 325 MG TAB PO PRN (14:32)
--- NOTE | 2024-03-30 17:53 | Billing Data ---
Date of Service March 30, 2024 Coding Level of Care Code 94222 SUB INP/OBS CARE
[2024-03-31 06:47] LABS: Basophils # (auto) 0.03 K/uL (0.00-0.20); Basophils % (auto) 0.5 %; Eosinophils # (auto) 0.09 K/uL (0.00-0.50); Eosinophils % (auto) 1.4 %; Hemoglobin 10.9 g/dl (12.0-16.0); Immature Granulocytes # (auto) 0.02 K/uL (0.01-0.20); Immature Granulocytes % (auto) 0.3 %; Lymphocytes # (auto) 1.72 K/uL (1.20-3.40); Lymphocytes % (auto) 26.5 %; Mean Corpuscular Hemoglobin 27.7 pg (25.0-34.0); Mean Platelet Volume 9.3 fL (9.4-12.4); Monocytes # (auto) 0.39 K/uL (0.11-0.59); Neutrophils # (auto) 4.24 K/uL (1.40-6.50); Neutrophils % (auto) 65.3 %; Platelet Count 323 K/uL (130-400); RDW Standard Deviation 36.9 fL (36.4-46.3); Red Blood Count 3.93 M/uL (4.20-5.40); White Blood Count 6.49 K/ul (4.8-10.8)
[2024-03-31 07:07] LABS: Anion Gap 7 (3-11); BUN Creatinine Ratio 16.7 (10-20); Blood Urea Nitrogen 8 mg/dl (6-23); Calcium 9.3 mg/dl (8.6-10.3); Carbon Dioxide 23 mmol/L (21-32); Chloride 106 mmol/L (98-107); Creatinine Clr Calc Pharmacy 179.5 ml/min; Est GFR (African American) > 150.0 ml/min; Est GFR (Non-African American) 137.3 ml/min; Glucose 102 mg/dl (70-99(Fasting)); Potassium 3.9 mmol/L (3.5-5.1); Sodium 136 mmol/L (136-145)
--- NOTE | 2024-03-31 07:08 | Hospitalist Progress Note ---
Date of Service March 31, 2024 Assessment & Plan (1) Perineal abscess: Plan: Vero is a 23F (currently EGA 5 weeks) w/ PMH of bowel obstructions & ileocecal bowel stricture (follows w/ GI) who presented to the ER for worsening perirectal pain and was admitted for surgical management of a perineal abscess. - Patient s/p I&D of perineal abscess 03/27, now s/p Surgical Drainage 03/30 Cultures resulted from 03/27 showed Group B strep. - Mild leukocytosis on presentation, labs otherwise stable - Ultrasound showing elongated complex enlarging abscess in the left perineum - MRI findings of a complex perirectal abscess - Diet advanced by surgical team - Continue Zosyn, LR @ 80 mL/hr, and analgesia PRN (2) First trimester : Plan: - Patient , currently EGA 5 weeks - No vaginal bleeding, abdominal pain, nausea, vomiting. - Diet restarted after surgery, restart vitamin Plan Fluids: LR at 80 mL an hour Nutrition: Regular, vegetarian Code status: Full code DVT ppx: Ambulation Dispo: med/surg Admission and Anticipated Discharge Date Admission Date: March 29, 2024 Subjective Patient noting mild epigastric pain this morning prior to surgery. No lower abdominal pain, cramping, or vaginal discharge/bleeding. Patient denies fevers and chills. No nausea or emesis. Notes she feels constipated. Surgery scheduled this morning for perineal abscess drainage. Physical Exam Physical Exam: Constitutional: well-appearing, no acute distress HEENT: NCAT, no conjunctival injection CV: RRR, normal S1/S2, no MRG Resp: non-labored, CTAB GI: soft, non-distended, mild epigastric TTP, now lower abdominal TTP, no masses : Deferred Skin: warm, dry, no rash appreciated Neuro: AO x 3 Results & Data Results & Data Vital Signs (Past 12 Hours) Vital Signs Temp Pulse Resp BP Pulse Ox O2 Del Method 03/31/24 03:32 36.8 C 71 18 99/63 L 99 Room Air 03/30/24 23:30 36.3 C L 78 18 107/55 L 98 Room Air 03/30/24 19:15 36.8 C 82 18 106/59 L 99 Room Air
--- NOTE | 2024-03-31 09:25 | Surgery Progress Note ---
<Statement entered by Mu Posadas, - 03/31/24 10:46> I have seen and examined this patient with the surgical team. I agree with this plan. Patient may be discharged after 1 PM at which time she will be 24 hours without fever. I recommend a capful MiraLAX daily until she begins to have bowel movements. Administer first dose of MiraLAX this a.m. Date of Service March 31, 2024 Assessment & Plan (1) History of incision and drainage: Plan: POD 1 perineal incision and drainage WBC wnl, VSS Packing changed at bedside , pt to keep in until tomorrow , if comes out before may leave out Sitz baths TID for comfort recommend stool softener daily may keep gauze and disposable undergarments on for dressings oral antibiotics at d/c follow up with Dr Posadas in office outpatient Admission and Anticipated Discharge Date Admission Date: March 29, 2024 Subjective Pt reports pressure feeling in perineal area is gone but having post surgical soreness and discomfort Review of Systems Constitutional: no fever and no chills Respiratory: no dyspnea Physical Exam Physical Exam: alert oriented Gastrointestinal (Abdomen): post perineal incision and drainage Results & Data Vital Signs (Past 12 Hours) Vital Signs Temp Pulse Resp BP Pulse Ox O2 Del Method 03/31/24 07:59 98.1 F 69 16 105/72 97 Room Air 03/31/24 03:32 98.2 F 71 18 99/63 L 99 Room Air 03/30/24 23:30 97.3 F L 78 18 107/55 L 98 Room Air Results CBC w Diff Results: RBC 3.93 M/uL (4.20-5.40) L 03/31/24 WBC 6.49 K/ul (4.8-10.8) 03/31/24 Hgb 10.9 g/dl (12.0-16.0) L 03/31/24 Hct 33.0 % (37.0-47.0) L 03/31/24 MCV 84.0 fL (80.0-100.0) 03/31/24 MCH 27.7 pg (25.0-34.0) 03/31/24 MCHC 33.0 g/dL (32.0-36.0) 03/31/24 RDW Standard Deviation 36.9 fL (36.4-46.3) 03/31/24 RDW Coefficient of Variation 12.0 % (11.5-14.5) 03/31/24 Plt Count 323 K/uL (130-400) 03/31/24 MPV 9.3 fL (9.4-12.4) L 03/31/24 Neutrophils (%) (Auto) 65.3 % 03/31/24 Lymphocytes (%) (Auto) 26.5 % 03/31/24 Monocytes # (Auto) 0.39 K/uL (0.11-0.59) 03/31/24 Eosinophils # (Auto) 0.09 K/uL (0.00-0.50) 03/31/24 Immature Granulocyte % (Auto) 0.3 % 03/31/24 Neutrophils # (Auto) 4.24 K/uL (1.40-6.50) 03/31/24 Lymphocytes # (Auto) 1.72 K/uL (1.20-3.40) 03/31/24 Monocytes # (Auto) 0.39 K/uL (0.11-0.59) 03/31/24 Eosinophils # (Auto) 0.09 K/uL (0.00-0.50) 03/31/24 Basophils # (Auto) 0.03 K/uL (0.00-0.20) 03/31/24 Immature Granulocyte # (Auto) 0.02 K/uL (0.01-0.20) 4 PG Care Time/CCT Total # of Minutes Spent Total Time Spent with Patient: Total time spent is greater than 50% in coordination of care (as documented) at patient's floor/unit and/or counseling patient: Coding Level of Care Code 69748 Post Operative Follow-Up Diagnoses History of incision and drainage Z98.890
--- NOTE | 2024-03-31 11:49 | Discharge Summary ---
Date of Service March 31, 2024 Admission HPI Per Admitting Provider Patient is a 23-year-old female who is 5 weeks who returns to the hospital for left rectal pain. Patient was seen in the ED 2 days ago and had an I&D done for a perineal abscess and given Augmentin. Patient went home and continued to have pain. She has also had minimal drainage from the area. Continues to feel a hard tender area in the left rectal region. She has been taking Tylenol and applying ice to the area. Packing still in place. She tried to follow-up with [facility] but was unable to get in quickly and told to come to the emergency room. She denies any fever, chills, abdominal pain, rectal bl eeding, vaginal bleeding, nausea, vomiting. No issues with bowel movements or urination. Admission Exam Per Admitting Provider Constitutional: well-appearing, no acute distress HEENT: NCAT, no conjunctival injection CV: regular rhythm, no murmur appreciated, extremities well-perfused, no LE edema Resp: CTABL, no wheezes/rales/rhonchi appreciated, no increased work of breathing GI: soft, nondistended, nontender, BS normoactive : Declined, refer to surgical physical exam Skin: warm, dry, no rash appreciated Neuro: alert, oriented, no focal neurologic deficit appreciated Principal Diagnosis Perineal Abscess Discharge Exam Constitutional: well-appearing, no acute distress HEENT: NCAT, no conjunctival injection CV: RRR, normal S1/S2, no MRG Resp: non-labored, CTAB GI: soft, non-distended, mild epigastric TTP, now lower abdominal TTP, no masses : Deferred Skin: warm, dry, no rash appreciated Neuro: AO x 3 Discharge Data Allergies Allergy/AdvReac Type Severity Reaction Status Date / Time No Known Allergies Allergy Verified 03/30/24 09:12 Consultations 03/29/24 19:11 ED Decision to Admit Stat 03/29/24 21:26 Consult General Surgery Routine Procedures Performed Operation Date: 03/30/24 08:20 Actual Procedures p Drainage Perirectal Abscess, Rectal Exam(Not Applicable) - Mu Madera DO Ordered Studies 03/29/24 12:12 US soft tissue perineum Urgent 03/29/24 15:01 MRI Pelvis [MR pelvis wo con] Stat Hospital Course (1) Perineal abscess: (2) First trimester : Courtney Pham is a 23F (currently EGA 5 weeks) w/ PMH of bowel obstructions & ileocecal bowel stricture (follows w/ GI) who presented to the ER for worsening perirectal pain and was admitted for surgical management of a perineal abscess. Perineal Abscess - Patient s/p I&D of perineal abscess 03/27, now s/p Surgical Drainage 03/30 Cultures resulted from 03/27 showed Group B strep. Wound care instructions per surgical team w/ outpatient follow up - Mild leukocytosis on presentation, labs otherwise stable - Ultrasound showing elongated complex enlarging abscess in the left perineum - MRI findings of a complex perirectal abscess - Tolerating regular diet - Continue antibiotics w/ Augmentin 875 mg PO BID for 5 days - Continue analgesia w/ Tylenol 650 mg PO - Advised 24-48 hours of rest - Follow up with PCP in 1-2 weeks First trimester : - Patient , currently EGA 5 weeks - No vaginal bleeding, abdominal pain, nausea, vomiting. - Continue vitamin - Encouraged follow up with OBGYN Plan Fluids: None at discharge Nutrition: Regular, vegetarian Code status: Full code DVT ppx: Ambulation Dispo: Home Total Time Total Time Spent Total Time Spent (In Minutes): < 30 mins Discharge Plan Discharge Items Patient Disposition: Home - Self-Care Reason For Visit: PERINEAL ABSCESS, Discharge Diagnosis: incision and drainage of perirectal abscess Activity: Per Instructions section Bathing Comment: You may shower and do warm sitz bath three times daily for comfort Exercise/Sports: Wait until after follow-up appointment Non-emergency contact: Surgeon Call non-emergency contact if: you have any medication questions, your symptoms worsen, you have a fever, your temperature is above 101.5, your wound has increased redness, your wound has increased drainage and your wound pain has increased Follow-up/Referrals: Lars Joy DO [Primary Care Provider] - 04/08/24 11:30 am Mu Posadas DO [Physician] - (please call to schedule follow up in clinic and call office next week for your culture results to verify the antibiotic is covering the infecting organism. ) Diet: Regular Addtl Attending Provider Instructions: Hospitalist Team Instructions: - You were admitted to the hospital for increasing pain in the setting of a perineal abscess - The abscess required surgical drainage for treatment/infection control - Encourage rest as much as possible over next 24-48 hours - You received IV antibiotics in the hospital and will be sent home with an oral version (Augmentin) Take Augmentin 875 mg PO BID for 5 more days - Follow surgical team wound care instructions and follow up with Dr. Reed-Tomas son in office outpatient - Encourage daily Miralax (1 cap) until having soft bowel movements - Recommend continued follow up with OB for related care/concerns Surgical Team Instructions - Take warm sitz baths 3-4x/daily to help cleanse the area and for comfort - Keep a dry dressing in your undergarments and change daily and as needed to help collect any drainage. You may use a small amount of tape or undergarments to hold dressing in place - Keep the packing in the wound in until tomorrow 04/01 If it falls out on its own you do not need to replace it Pending Studies at Discharge: Yes Studies:: culture results Stand-Alone Forms: [facility], Smoking Cessation Medications and DC Order Prescriptions: New polyethylene glycol 3350 [Miralax] 17 gram Powder In Packet 17 g PO DAILY 14 Days Qty: 14 0RF acetaminophen 325 mg Tablet 650 mg PO Q4H PRN (Reason: fever or pain) 14 Days Qty: 30 0RF amoxicillin-pot clavulanate 875-125 mg tablet 1 tab PO BID 5 Days Qty: 10 0RF Continued PNV cmb#95-ferrous fumarate-FA [] 28 mg iron- 800 mcg Tablet 1 tab PO DAILY Discontinued amoxicillin-pot clavulanate 875-125 mg tablet 1 tab PO BID Qty: 14 0RF Rx Instructions: STARTED 03/27/24 Discharge Orders: Discharge Order (Routine); Ordered 03/31/24 Ordered By: Jamie Ley/Other Patient Handouts: Taking a Sitz Bath Admission Data Admit Date/Time: 03/29/24 19:53 Attending Provider: Deondre Shannon Admit Provider: Jake Weston Primary Care Provider: Lars Joy Other Providers: Mu Posadas; Vika Morrison Other Interventions: Discharge Summary Assessment (RN) Last Done: 03/31/24 12:18 Supervising Physician Co-Signing Physician Notes I personally examined the patient and verified all cottrell points of history and exam, discussed case, and agree with decision making with Dr Tucker Feeling better overall, feeling up to going home. Vitals noted, in general she is awake and alert pleasant no distress. HEENT normocephalic atraumatic mucous membranes moist. Breathing unlabored no accessory muscle use good effort. Skin without rashes pallor or icterus. Perirectal abscessnow status post surgical drainagefeeling better. Ongoing management per surgical team, input greatly appreciated. Longitudinally as an outpatientongoing surveillance (symptoms, etc.) to follow for any evidence of inflammatory bowel disease (did have biopsy that was negative about 2 years ago, small bowel enterography appears to have been recommended, but if it was done it does not appear to be in our system, obviously there is no urgency to this and would definitely wait until after , and at the same time if she is having no further symptoms, it is quite possible that this is just a perirectal abscess not anything related to inflammatory bowel disease, etc. safe/stable for home. Otherwise as above otherwise as above Resident Activity Tracking Resident Involvement: Resident Care Provided Care Provided: Adult Hospital Medicine
[2024-03-31] MEDS: POLYETHYLENE (MIRALAX) 17 GM PACK PO SCH (13:27)
--- NOTE | 2024-03-31 18:50 | Billing Data ---
Date of Service March 31, 2024 Coding Level of Care Code 31149 IN/OBS DISCH 30 MIN/LESS
== END 2024-03-31 13:28 | disposition home or self-care (01) | DRG 832 ==
LOC: ED 11:30 → 3N 19:53 → SUATTDRO 19:53 → 3N 23:48
DX: O23.591 Infection of other part of genital tract in pregnancy, first trimester; Z3A.01 Less than 8 weeks gestation of pregnancy; L02.215 Cutaneous abscess of perineum